=== PATIENT | male | born 1960 | race Caucasian/White ===

== ENCOUNTER 2023-09-12 13:27 | Inpatient (IN) ==
[2023-09-12 13:56] LABS: BILIRUBIN,URINE NEGATIVE (NEGATIVE); BLOOD/HEMOGLOBIN,URINE 4+ (NEGATIVE); GLUCOSE, URINE NEGATIVE (NEGATIVE); KETONES,URINE NEGATIVE (NEGATIVE); LEUKOCYTE ESTERASE ,URINE 1+ (NEGATIVE); NITRITES,URINE POSITIVE (NEGATIVE); PH,URINE 6.5 (5.0 - 8.0); PROTEIN,URINE 2+ (NEGATIVE); UROBILINOGEN,URINE 2+ (NORMAL)
[2023-09-12 13:57] LABS: APPEARANCE,URINE SLIGHTLY HAZY (CLEAR); COLOR,URINE YELLOW (YELLOW)
[2023-09-12 14:04] LABS: BACTERIA,URINE 4+ /HPF (NEGATIVE); SQUAMOUS EPITHELIAL CELL,UR RARE /HPF (NEGATIVE)
--- NOTE | 2023-09-12 15:23 | DR.EXTPAIN ---
HPI Time seen Time Seen by Provider: 09/12/23 14:23 PCP Primary Care Physician: Paige Complaint/Symptoms Chief Complaint Doctor Comments: Patient fell 2 days ago because he has an old injury( 08/11/23) to the Rt leg that affects his ability to walk. Patient states that he was also feeling lightheaded when he fell. Patient hit his right hand and c/o swelling and pain in his right hand. The old injury has led to mid-back pain that is radiating to his BLE. Patient denies:fever, n, v, chest pain, abdl pain,. Patient is a smoker;began at age 18 and was smoking 1ppd until the 08/11/23 incident and now he smokes 1/2PPD. Chief Complaint:: Patient fell 2 days ago secondary to back pain and feeling light headed. He complains of edema and pain right hand and wrist. He states he has had back pain since 08/10 and wwas evaluated. He complains of pain mid back radiating to bilateral legs. He states his pain stated prior to his fall 2 days ago. COVID-19 Coronavirus risk:travel/contact w/high risk person: No Has patient experienced Coronavirus symptoms: No Source History Provided: Patient and EMS Mode of arrival Mode of Arrival: EMS Timing Onset of Chief Complaint: 09/10/23 PMH PMH Past Medical History: No Past Surgical History: Yes Surgical History: Ortho Surgery and Other Family History History of Family Medical Conditions: Yes Family Medical History: MD, Coronary Artery Disease and Hypertension Social History Does patient currently use any type of tobacco product: Yes Have you used tobacco products in the last 12 months: Yes Type of Tobacco Use: None Does any household member use tobacco: Yes Alcohol Use: None Do you use any recreational Drugs:: No Lives With: Spouse Lives Where: Home Travel Risk Coronavirus risk:travel/contact w/high risk person: No Has patient experienced Coronavirus symptoms: No Infectious screening In the last 2 months have you had wt loss of >10#?: NO Have you had fever, night sweats or hemotysis?: No Have you traveled outside the country in the last 6 months?: No Isolation: Standard ROS Review of Systems Constitutional: No Symptoms Reported Eyes: No Symptoms Reported ENTM: No Symptoms Reported Respiratoy: No Symptoms Reported Cardiovascular: No Symptoms Reported Gastrointestinal/Abdominal: No Symptoms Reported Genitourinary: No Symptoms Reported Neurological: Other (lightheadedness) Musculoskeletal: No Symptoms Reported, Right, Hand (Swelling and pain) and Leg (RLE weakness) Integumentary: Change in Color (Rt hand) Hematologic/Lymphatic: No Symptoms Reported Endocrine: No Symptoms Reported Psychiatric: No Symptoms Reported All Other Systems: Reviewed and Negative PE Vital Signs Vitals: Vital Signs Temperature 99.7 F Temperature 98.6 F Pulse Rate 91 Pulse Rate 93 Pulse Rate 94 Pulse Rate 96 Pulse Rate 99 Pulse Rate 110 Respiratory Rate 20 Respiratory Rate 20 Respiratory Rate 24 Blood Pressure [Left Arm] 128/75 Blood Pressure 140/66 Blood Pressure 137/74 O2 Sat by Pulse Oximetry 96 O2 Sat by Pulse Oximetry 95 O2 Sat by Pulse Oximetry 95 O2 Sat by Pulse Oximetry 95 O2 Sat by Pulse Oximetry 95 O2 Sat by Pulse Oximetry 95 O2 Sat by Pulse Oximetry 94 General Limitations: No Limitations General Appearance: Alert and In No Apparent Distress Head Head Exam: Normal Inspection Eyes Eye exam: Normal Appearance ENT ENT Exam: Normal Exam Neck Neck Exam: Normal Inspection Chest Chest Inspection: Normal Inspection Respiratory Respiratory Exam: Normal Lung Sounds Bilat Respiratory Exam: Bilateral: Clear to Auscultation Cardiovascular Cardiovascular Exam: Regular Rate and Normal Rhythm Abdominal Exam Abdominal Exam: Normal Inspection, Normal Bowel Sounds and Soft Extremities Extremities Exam: Normal Inspection, Tenderness (Rt hand and Left shoulder joint) and Joint Swelling (Rt hand) Upper Extremities Shoulder Exam: Tenderness (left shoulder joint) and Swelling (Rt hand); negative Full ROM (decreased at left shoulder joint) Hand Exam: Tenderness (Dorsal surface Rt hand), Swelling (Rt hand (dorsal)), Erythema (Dorsal surface Rt hand) and Other (No flexor tendon sheath tenderness in fingers of Rt hand) Back Back Exam: Normal Inspection Neurological Neurological Exam: Alert, Oriented X3 and CN II-XII Intact Psychiatric Psychiatric Exam: Normal Affect and Normal Mood Skin Skin Exam: Warm, Dry, Intact and Normal Color MDM Differential Diagnosis Differential Diagnosis: Fracture (or dislocation) and Other (Cellulitis,electrolyte disorder,UTI,dehydration) COURSE Treatment Treatment: Patient was brought to an exam room. IV access was initiated and labs and tests were ordered. Patient 's Left shoulder xray did not reveal a fx or dislocation and the right hand xray did not reveal a fracture or dislocation. Patient's labs were reviewed: His wbc 19.2,Na 121,U/A nitrite and leukest pos,5- 10 wbcs and Rbcs ( urine cx pending). Patient was given cefepime 2g iv for the celluitis and the UTI. Discussed case with Dr Walls. Patient has been accepted to Dr Walls's Service for further inpatient evaluation. [facility]OR Labs Reviewed Laboratory Results Reviewed?: Yes 09/12/23 17:30 09/12/23 17:30 Laboratory: WBC 19.2 X10^3/uL (3.6-10.0) H 09/12/23 17:30 RBC 3.83 X10^6/uL (4.7-6.0) L 09/12/23 17:30 Hgb 11.7 g/dL (13.5-18.0) L 09/12/23 17:30 Hct 34.1 % (42.0-54.0) L 09/12/23 17:30 MCV 89.1 fL (80.0-100.0) 09/12/23 17:30 MCH 30.5 pg (27.0-34.0) 09/12/23 17:30 MCHC 34.2 g/dL (33.0-35.0) 09/12/23 17:30 RDW 14.3 % (11.6-16.5) 09/12/23 17:30 Plt Count 503 X10^3/uL (150.0-450.0) H 09/12/23 17:30 MPV 6.3 fL (7.4-11.0) L 09/12/23 17:30 Neut % (Auto) 89.8 % (42.0-75.0) H 09/12/23 17:30 Lymph % (Auto) 3.8 % (21.0-51.0) L 09/12/23 17:30 [place] % (Auto) 5.2 % (0.0-13.0) 09/12/23 17:30 Eos % (Auto) 0.1 % (0.9-2.9) L 09/12/23 17:30 Baso % (Auto) 1.1 % (0.2-1.0) H 09/12/23 17:30 Neut # (Auto) 17.2 x10^3/uL (2.2-4.8) H 09/12/23 17:30 Lymph # (Auto) 0.7 X10^3/uL (1.3-2.9) L 09/12/23 17:30 [place] # (Auto) 1.0 x10^3/uL (0.3-0.8) H 09/12/23 17:30 Eos # (Auto) 0.0 x10^3/uL (0.0-0.2) 09/12/23 17:30 Baso # (Auto) 0.2 X10^3/uL (0.0-0.1) H 09/12/23 17:30 Absolute Nucleated RBC 0.0 /100WBC 09/12/23 17:30 Sodium 121 mmol/L (136-145) L* 09/12/23 17:30 Corrected Sodium TNP 09/12/23 17:30 Potassium 4.7 mmol/L (3.5-5.1) 09/12/23 17:30 Chloride 89 mmol/L (98-107) L 09/12/23 17:30 Carbon Dioxide 28.0 mmol/L (21-32) 09/12/23 17:30 BUN 7 mg/dL (7-18) 09/12/23 17:30 Creatinine 0.78 mg/dL (0.70-1.30) 09/12/23 17:30 Est GFR (MDRD) Af Amer > 60 (>60) 09/12/23 17:30 Est GFR (MDRD) Non-Af > 60 (>60) 09/12/23 17:30 Glucose 108 mg/dL (65-99) H 09/12/23 17:30 Calcium 8.1 mg/dL (8.5-10.1) L 09/12/23 17:30 Corrected Calcium 10.1 mg/dL (8.5-10.1) 09/12/23 17:30 Total Bilirubin 0.70 mg/dL (0.2-1.0) 09/12/23 17:30 AST 26 Units/L (15-37) 09/12/23 17:30 ALT 18 Units/L (12-78) 09/12/23 17:30 Alkaline Phosphatase 271 Units/L (46-116) H 09/12/23 17:30 Total Protein 8.2 g/dL (6.4-8.2) 09/12/23 17:30 Albumin 1.5 g/dL (3.4-5.0) L 09/12/23 17:30 Globulin 6.7 g/dL (2.5-4.5) H 09/12/23 17:30 Albumin/Globulin Ratio 0.2 Ratio (1.1-2.1) L 09/12/23 17:30 Specimen Type Clean catch urine 09/12/23 13:46 Urine Color Yellow (YELLOW) 09/12/23 13:46 Urine Appearance Slightly hazy (CLEAR) 09/12/23 13:46 Urine pH 6.5 (5.0 - 8.0) 09/12/23 13:46 Ur Specific [place] 1.015 (1.000-1.030) 09/12/23 13:46 Urine Protein 2+ (NEGATIVE) 09/12/23 13:46 Urine Glucose (UA) Negative (NEGATIVE) 09/12/23 13:46 Urine Ketones Negative (NEGATIVE) 09/12/23 13:46 Urine Blood 4+ (NEGATIVE) 09/12/23 13:46 Urine Nitrite Positive (NEGATIVE) 09/12/23 13:46 Urine Bilirubin Negative (NEGATIVE) 09/12/23 13:46 Urine Urobilinogen 2+ (NORMAL) 09/12/23 13:46 Ur Leukocyte Esterase 1+ (NEGATIVE) 09/12/23 13:46 Urine RBC 5-10 /HPF (0-3) A 09/12/23 13:46 Urine WBC 5-10 /HPF (0-5) A 09/12/23 13:46 Ur Squamous Epith Cells Rare /HPF (NEGATIVE) 09/12/23 13:46 Amorphous Sediment 1+ /HPF (NEGATIVE) 09/12/23 13:46 Urine Bacteria 4+ /HPF (NEGATIVE) 09/12/23 13:46 Ur Culture Indicated? Yes/culture set up 09/12/23 13:46 Opioid Opioid Risk Tool Age (Paulo box if 16-45): No History of Preadolescent Sexual Abuse: No Total: 0 Total Score Risk Category: Low Risk Copyright: Tom LU predicting aberrant behaviors Discharge Plan Diagnosis Discharge Problem: Cellulitis and abscess of hand, Urinary tract infection, Acute hyponatremia Discharge Plan Patient Disposition: 09 ADMITTED INPATIENT Condition: Stable Orders to Discharge Patient Discharge Orders: Transfer (Routine); Ordered 05/19/24 Ordered By: Larisa Burciaga
--- NOTE | 2023-09-12 16:59 | RAD ---
EXAM:SHOULDER, LEFT two-viewHISTORY:FALL YESTERDAY LOOKING FOR FX OR DISLOCATION ;COMPARISON:07/13/2022FINDINGS:The glenohumeral joint appears intact. No acute fracture or dislocation. The visualized portions of the scapula appear intact.The visualized portions of the chest demonstrate no acute process.IMPRESSION:No acute fracture or dislocation.THIS IS AN ELECTRONICALLY VERIFIED FINAL REPORT09/12/2023 4:56 PM - Electronically signed by Seamus Iqbal MD
--- NOTE | 2023-09-12 17:00 | RAD ---
EXAM:HAND, RIGHT three-viewHISTORY:FALL YESTERDAY, DR LOOKING FOR FX. RT HAND SWOLLEN AND HOT TO THE TOUCH ;COMPARISON:NoneFINDINGS:No acute fracture or dislocation. Moderate 1st carpometacarpal joint arthrosis. The carpal bones appear well aligned. No acute soft tissue abnormality.IMPRESSION:No acute fracture or dislocation.THIS IS AN ELECTRONICALLY VERIFIED FINAL REPORT09/12/2023 4:57 PM - Electronically signed by Seamus Iqbal MD
[2023-09-12] MEDS ORDERED: NS 100 ML IV 100 ML ONE (17:15)
[2023-09-12] MEDS ORDERED: TORADOL 30 MG VIAL ONE (17:20)
[2023-09-12] MEDS: MAXIPIME VIAL 2 GRAMS 2 G in NS 100 ML IV 100 ML IV ONE (17:32)
[2023-09-12] MEDS: TORADOL 30 MG VIAL IVP ONE (17:33)
[2023-09-12 17:58] LABS: BASOPHILS # (AUTO) 0.2 X10^3/uL (0.0-0.1); BASOPHILS % (AUTO) 1.1 % (0.2-1.0); EOSINOPHILS % (AUTO) 0.1 % (0.9-2.9); HEMATOCRIT 34.1 % (42.0-54.0); HEMOGLOBIN 11.7 g/dL (13.5-18.0); LYMPHOCYTES # (AUTO) 0.7 X10^3/uL (1.3-2.9); LYMPHOCYTES % (AUTO) 3.8 % (21.0-51.0); MEAN CORPUSCULAR HEMOGLOBIN 30.5 pg (27.0-34.0); MEAN CORPUSCULAR HGB CONC 34.2 g/dL (33.0-35.0); MEAN CORPUSCULAR VOLUME 89.1 fL (80.0-100.0); MEAN PLATELET VOLUME 6.3 fL (7.4-11.0); MONOCYTES % (AUTO) 5.2 % (0.0-13.0); NEUTROPHILS # (AUTO) 17.2 x10^3/uL (2.2-4.8); NEUTROPHILS % (AUTO) 89.8 % (42.0-75.0); PLATELET COUNT 503 X10^3/uL (150.0-450.0); RED BLOOD COUNT 3.83 X10^6/uL (4.7-6.0); RED CELL DISTRIBUTION WIDTH 14.3 % (11.6-16.5); WHITE BLOOD COUNT 19.2 X10^3/uL (3.6-10.0)
[2023-09-12 18:26] LABS: ALANINE AMINOTRANSFERASE 18 Units/L (12-78); ALBUMIN 1.5 g/dL (3.4-5.0); ALKALINE PHOSPHATASE 271 Units/L (46-116); ASPARTATE AMINO TRANSFERASE 26 Units/L (15-37); BLOOD UREA NITROGEN 7 mg/dL (7-18); CALCIUM 8.1 mg/dL (8.5-10.1); CHLORIDE 89 mmol/L (98-107); COR CA(FOR HYPOALB) 10.1 mg/dL (8.5-10.1); CREATININE 0.78 mg/dL (0.70-1.30); GLUCOSE 108 mg/dL (65-99); POTASSIUM 4.7 mmol/L (3.5-5.1); TOTAL PROTEIN 8.2 g/dL (6.4-8.2); eGFR NON BLACK RACES > 60 (>60)
[2023-09-12 18:28] LABS: SODIUM 121 mmol/L (136-145)
[2023-09-12] MEDS: NS 1,000 ML IV 1,000 ML IV SCH (18:54)
[2023-09-12 21:02] VITALS: BMI 22.6
[2023-09-12] MEDS: COLACE CAP 100 MG PO SCH (21:45)
[2023-09-12] MEDS: MAXIPIME VIAL 2 GRAMS 2 G in NS 100 ML IV 100 ML IV SCH (21:47)
[2023-09-13] MEDS: NORCO 10/325 TAB PO PRN (00:11)
[2023-09-13] MEDS: MORPHINE SULFATE INJ 2 MG INJ IVP PRN (02:11)
[2023-09-13] MEDS: TYLENOL 325 MG TAB PO PRN (04:43)
[2023-09-13 05:12] LABS: BASOPHILS # (AUTO) 0.1 X10^3/uL (0.0-0.1); BASOPHILS % (AUTO) 0.4 % (0.2-1.0); EOSINOPHILS % (AUTO) 0.1 % (0.9-2.9); HEMATOCRIT 32.8 % (42.0-54.0); HEMOGLOBIN 11.3 g/dL (13.5-18.0); LYMPHOCYTES # (AUTO) 1.2 X10^3/uL (1.3-2.9); LYMPHOCYTES % (AUTO) 7.1 % (21.0-51.0); MEAN CORPUSCULAR HEMOGLOBIN 30.8 pg (27.0-34.0); MEAN CORPUSCULAR HGB CONC 34.4 g/dL (33.0-35.0); MEAN CORPUSCULAR VOLUME 89.4 fL (80.0-100.0); MEAN PLATELET VOLUME 6.3 fL (7.4-11.0); MONOCYTES # (AUTO) 0.9 x10^3/uL (0.3-0.8); MONOCYTES % (AUTO) 5.3 % (0.0-13.0); NEUTROPHILS # (AUTO) 14.7 x10^3/uL (2.2-4.8); NEUTROPHILS % (AUTO) 87.1 % (42.0-75.0); PLATELET COUNT 440 X10^3/uL (150.0-450.0); RED BLOOD COUNT 3.67 X10^6/uL (4.7-6.0); RED CELL DISTRIBUTION WIDTH 14.6 % (11.6-16.5); WHITE BLOOD COUNT 16.8 X10^3/uL (3.6-10.0)
[2023-09-13 05:24] LABS: ALANINE AMINOTRANSFERASE 25 Units/L (12-78); ALBUMIN 1.3 g/dL (3.4-5.0); ALKALINE PHOSPHATASE 241 Units/L (46-116); ASPARTATE AMINO TRANSFERASE 35 Units/L (15-37); BLOOD UREA NITROGEN 11 mg/dL (7-18); CARBON DIOXIDE 28.5 mmol/L (21-32); CHLORIDE 89 mmol/L (98-107); COR CA(FOR HYPOALB) 10.2 mg/dL (8.5-10.1); COR NA(FOR HYPERGLY) 123 mmol/L (136-145); CREATININE 0.81 mg/dL (0.70-1.30); GLUCOSE 138 mg/dL (65-99); POTASSIUM 4.9 mmol/L (3.5-5.1); TOTAL PROTEIN 7.9 g/dL (6.4-8.2); eGFR NON BLACK RACES > 60 (>60)
[2023-09-13 05:36] LABS: SODIUM 122 mmol/L (136-145)
[2023-09-13] MEDS: NS 1,000 ML IV 1,000 ML ONE (07:24)
[2023-09-13] MEDS: MAXIPIME VIAL 1 GRAM ONE (07:24)
[2023-09-13] MEDS: MILK OF MAGNESIA PO SCH (08:25)
[2023-09-13] MEDS: VANCOMYCIN IV *PREMIX 1 G/200 ML BAG 1 G/200 ML PIGGYBACK IV SCH (09:51)
[2023-09-13] MEDS ORDERED: PHARMACY CONSULT - VANCOMYCIN XX SCH (10:00)
[2023-09-14 05:43] LABS: BASOPHILS % (AUTO) 0.2 % (0.2-1.0); EOSINOPHILS % (AUTO) 0.1 % (0.9-2.9); HEMATOCRIT 30.7 % (42.0-54.0); HEMOGLOBIN 10.3 g/dL (13.5-18.0); LYMPHOCYTES # (AUTO) 0.9 X10^3/uL (1.3-2.9); LYMPHOCYTES % (AUTO) 5.6 % (21.0-51.0); MEAN CORPUSCULAR HEMOGLOBIN 29.8 pg (27.0-34.0); MEAN CORPUSCULAR HGB CONC 33.6 g/dL (33.0-35.0); MEAN CORPUSCULAR VOLUME 88.7 fL (80.0-100.0); MONOCYTES # (AUTO) 0.8 x10^3/uL (0.3-0.8); MONOCYTES % (AUTO) 5.4 % (0.0-13.0); NEUTROPHILS # (AUTO) 13.7 x10^3/uL (2.2-4.8); NEUTROPHILS % (AUTO) 88.7 % (42.0-75.0); PLATELET COUNT 509 X10^3/uL (150.0-450.0); RED BLOOD COUNT 3.46 X10^6/uL (4.7-6.0); RED CELL DISTRIBUTION WIDTH 14.6 % (11.6-16.5); WHITE BLOOD COUNT 15.5 X10^3/uL (3.6-10.0)
[2023-09-14 05:55] LABS: ALANINE AMINOTRANSFERASE 50 Units/L (12-78); ALBUMIN 1.2 g/dL (3.4-5.0); ALKALINE PHOSPHATASE 189 Units/L (46-116); ASPARTATE AMINO TRANSFERASE 76 Units/L (15-37); BLOOD UREA NITROGEN 9 mg/dL (7-18); CALCIUM 7.8 mg/dL (8.5-10.1); CARBON DIOXIDE 24.5 mmol/L (21-32); CHLORIDE 94 mmol/L (98-107); COR NA(FOR HYPERGLY) 126 mmol/L (136-145); CREATININE 0.78 mg/dL (0.70-1.30); GLUCOSE 165 mg/dL (65-99); POTASSIUM 4.1 mmol/L (3.5-5.1); TOTAL PROTEIN 7.4 g/dL (6.4-8.2); eGFR NON BLACK RACES > 60 (>60)
[2023-09-14 06:07] LABS: SODIUM 124 mmol/L (136-145)
[2023-09-14] MEDS: MOBIC TAB 15 MG PO SCH (11:07)
[2023-09-14] MEDS: PHARMACY COMMENT IV NR (20:03)
[2023-09-14] MEDS ORDERED: VANCOMYCIN IV *PREMIX 1 G/200 ML BAG 1 G/200 ML PIGGYBACK IV SCH (21:00)
[2023-09-14] MEDS: VANCOMYCIN IV *PREMIX 1 G/200 ML BAG 1 G/200 ML PIGGYBACK IV SCH (21:49)
[2023-09-15 07:07] LABS: BASOPHILS # (AUTO) 0.1 X10^3/uL (0.0-0.1); BASOPHILS % (AUTO) 0.5 % (0.2-1.0); EOSINOPHILS % (AUTO) 0.3 % (0.9-2.9); HEMATOCRIT 30.3 % (42.0-54.0); HEMOGLOBIN 10.3 g/dL (13.5-18.0); LYMPHOCYTES # (AUTO) 0.9 X10^3/uL (1.3-2.9); LYMPHOCYTES % (AUTO) 6.8 % (21.0-51.0); MEAN CORPUSCULAR HEMOGLOBIN 29.9 pg (27.0-34.0); MEAN CORPUSCULAR HGB CONC 33.9 g/dL (33.0-35.0); MEAN CORPUSCULAR VOLUME 88.3 fL (80.0-100.0); MEAN PLATELET VOLUME 6.1 fL (7.4-11.0); MONOCYTES # (AUTO) 0.7 x10^3/uL (0.3-0.8); MONOCYTES % (AUTO) 5.3 % (0.0-13.0); NEUTROPHILS % (AUTO) 87.1 % (42.0-75.0); PLATELET COUNT 496 X10^3/uL (150.0-450.0); RED BLOOD COUNT 3.44 X10^6/uL (4.7-6.0); RED CELL DISTRIBUTION WIDTH 13.9 % (11.6-16.5); WHITE BLOOD COUNT 13.7 X10^3/uL (3.6-10.0)
[2023-09-15 07:23] LABS: ALANINE AMINOTRANSFERASE 159 Units/L (12-78); ALBUMIN 1.2 g/dL (3.4-5.0); ALKALINE PHOSPHATASE 204 Units/L (46-116); ASPARTATE AMINO TRANSFERASE 171 Units/L (15-37); BLOOD UREA NITROGEN 11 mg/dL (7-18); CALCIUM 7.6 mg/dL (8.5-10.1); CARBON DIOXIDE 24.6 mmol/L (21-32); CHLORIDE 90 mmol/L (98-107); COR CA(FOR HYPOALB) 9.8 mg/dL (8.5-10.1); COR NA(FOR HYPERGLY) 120 mmol/L (136-145); GLUCOSE 118 mg/dL (65-99); POTASSIUM 4.2 mmol/L (3.5-5.1); TOTAL PROTEIN 7.3 g/dL (6.4-8.2); eGFR NON BLACK RACES > 60 (>60)
[2023-09-15 07:25] LABS: SODIUM 120 mmol/L (136-145)
[2023-09-15] MEDS: PHARMACY COMMENT IV NR (22:00)
[2023-09-15 22:01] LABS: CREATININE 0.73 mg/dL (0.70-1.30); VANCOMYCIN,TROUGH 12.4 ug/mL (15-20)
[2023-09-16 06:31] LABS: BASOPHILS # (AUTO) 0.1 X10^3/uL (0.0-0.1); BASOPHILS % (AUTO) 0.6 % (0.2-1.0); EOSINOPHILS # (AUTO) 0.1 x10^3/uL (0.0-0.2); EOSINOPHILS % (AUTO) 0.5 % (0.9-2.9); HEMATOCRIT 30.1 % (42.0-54.0); HEMOGLOBIN 10.4 g/dL (13.5-18.0); LYMPHOCYTES % (AUTO) 7.3 % (21.0-51.0); MEAN CORPUSCULAR HEMOGLOBIN 30.2 pg (27.0-34.0); MEAN CORPUSCULAR HGB CONC 34.6 g/dL (33.0-35.0); MEAN CORPUSCULAR VOLUME 87.1 fL (80.0-100.0); MONOCYTES # (AUTO) 0.9 x10^3/uL (0.3-0.8); NEUTROPHILS # (AUTO) 12.2 x10^3/uL (2.2-4.8); NEUTROPHILS % (AUTO) 85.6 % (42.0-75.0); PLATELET COUNT 527 X10^3/uL (150.0-450.0); RED BLOOD COUNT 3.46 X10^6/uL (4.7-6.0); RED CELL DISTRIBUTION WIDTH 14.5 % (11.6-16.5); WHITE BLOOD COUNT 14.2 X10^3/uL (3.6-10.0)
[2023-09-16 06:51] LABS: ALANINE AMINOTRANSFERASE 175 Units/L (12-78); ALBUMIN 1.2 g/dL (3.4-5.0); ALKALINE PHOSPHATASE 226 Units/L (46-116); ASPARTATE AMINO TRANSFERASE 123 Units/L (15-37); BLOOD UREA NITROGEN 9 mg/dL (7-18); CALCIUM 7.8 mg/dL (8.5-10.1); CARBON DIOXIDE 24.8 mmol/L (21-32); CHLORIDE 91 mmol/L (98-107); CREATININE 0.67 mg/dL (0.70-1.30); GLUCOSE 95 mg/dL (65-99); POTASSIUM 4.3 mmol/L (3.5-5.1); TOTAL PROTEIN 7.3 g/dL (6.4-8.2); eGFR NON BLACK RACES > 60 (>60)
[2023-09-16 06:53] LABS: SODIUM 121 mmol/L (136-145)
[2023-09-16] MEDS: FLORINEF PO SCH (13:17)
[2023-09-16] MEDS: VANCOMYCIN IV *PREMIX 1.25 G/250 ML BAG 1.25 G/250 ML PIGGYBACK IV SCH (13:36)
[2023-09-16 14:09] LABS: ALANINE AMINOTRANSFERASE 167 Units/L (12-78); ALBUMIN 1.3 g/dL (3.4-5.0); ALKALINE PHOSPHATASE 228 Units/L (46-116); ASPARTATE AMINO TRANSFERASE 108 Units/L (15-37); BLOOD UREA NITROGEN 13 mg/dL (7-18); CALCIUM 7.9 mg/dL (8.5-10.1); CARBON DIOXIDE 26.4 mmol/L (21-32); CHLORIDE 91 mmol/L (98-107); COR CA(FOR HYPOALB) 10.1 mg/dL (8.5-10.1); COR NA(FOR HYPERGLY) 122 mmol/L (136-145); CREATININE 0.75 mg/dL (0.70-1.30); GLUCOSE 139 mg/dL (65-99); POTASSIUM 4.2 mmol/L (3.5-5.1); TOTAL PROTEIN 7.6 g/dL (6.4-8.2); eGFR NON BLACK RACES > 60 (>60)
[2023-09-16 14:12] LABS: SODIUM 121 mmol/L (136-145)
--- NOTE | 2023-09-16 14:45 | US ---
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 [place] scale and color-flow images of the right upper quadrant were obtained.FINDINGS:The liver has normal echogenicity and size. No mass or intrahepatic biliary duct dilatation is present. The intrahepatic inferior vena cava was imaged. The portal vein is patent with blood flow toward the liver. The hepatic artery was patent. The visualized hepatic veins are patent with blood flow toward the right atrium.Limited visualization of the pancreas shows no significant abnormality.The gallbladder is contracted. As a result, there is wall thickening measuring between 4 and 5 mm. I see no evidence for stone or pericholecystic fluid. No extrahepatic biliary duct dilatation; common duct is normal.The right kidney is normal in size and echogenicity. No hydronephrosis.IMPRESSION:1. Contracted gallbladder2. No biliary dilatationTHIS IS AN ELECTRONICALLY VERIFIED FINAL REPORT09/16/2023 2:42 PM - Electronically signed by John Jean MD
--- NOTE | 2023-09-16 16:48 | MRI ---
EXAM:MRI left shoulder without IV contrastHISTORY:left shoulder pain status post fall-COMPARISON:X-ray 09/12/2023TECHNIQUE:MRI of the left shoulder without IV contrast is performed using standard sequences in multiple planes.FINDINGS:Prominent hypertrophic arthritic changes are seen in the AC joint. There is no widening of the AC joint. Moderate osteoarthritic changes are seen in the glenohumeral joint. There is mild joint effusion with distention of the axillary recess. There is concern for tear of the anterior glenoid labrum.Arm is in internal rotation. Biceps tendon is normally positioned in the bicipital groove. There is increased fluid in the subacromial-subdeltoid joint. Superior and posterior to the supraspinatus muscle, there is a lobulated fluid collection measuring approximately 4.0 x 1.6 cm. This could be a synovial cyst or ganglion cyst.There appears to be full-thickness tear of the distal supraspinatus tendon anteriorly. Evaluation is limited due to the arm positioning. Infraspinatus tendon appears normal. No coracohumeral impingement is seen. Subscapularis tendon is probably intact. There is distention of the subcoracoid and subscapular bursa.There is possible bone contusion of the distal clavicular head and acromion. No fracture or dislocation is seen. There is edema within the deltoid muscle.IMPRESSION:No fracture is seen. There may be bone contusion in the distal clavicular head and acromion.Full-thickness supraspinatus tendon tear suspected but evaluation is limited due to difficulty positioning patient.There may be tear of the anterior glenoid labrum.THIS IS AN ELECTRONICALLY VERIFIED FINAL REPORT09/16/2023 4:45 PM - Electronically signed by Gordo Simons MD
[2023-09-17 06:12] LABS: HEMOGLOBIN 10.4 g/dL (13.5-18.0); WHITE BLOOD COUNT 11.5 X10^3/uL (3.6-10.0)
[2023-09-17 06:17] LABS: BASOPHILS # (AUTO) 0.1 X10^3/uL (0.0-0.1); BASOPHILS % (AUTO) 0.8 % (0.2-1.0); EOSINOPHILS # (AUTO) 0.1 x10^3/uL (0.0-0.2); LYMPHOCYTES % (AUTO) 8.5 % (21.0-51.0); MEAN CORPUSCULAR HEMOGLOBIN 30.5 pg (27.0-34.0); MEAN CORPUSCULAR HGB CONC 34.8 g/dL (33.0-35.0); MEAN CORPUSCULAR VOLUME 87.7 fL (80.0-100.0); MONOCYTES # (AUTO) 0.6 x10^3/uL (0.3-0.8); MONOCYTES % (AUTO) 5.4 % (0.0-13.0); NEUTROPHILS # (AUTO) 9.7 x10^3/uL (2.2-4.8); NEUTROPHILS % (AUTO) 84.3 % (42.0-75.0); PLATELET COUNT 461 X10^3/uL (150.0-450.0); RED BLOOD COUNT 3.43 X10^6/uL (4.7-6.0); RED CELL DISTRIBUTION WIDTH 14.2 % (11.6-16.5)
[2023-09-17 06:22] LABS: ALANINE AMINOTRANSFERASE 137 Units/L (12-78); ALBUMIN 1.2 g/dL (3.4-5.0); ALKALINE PHOSPHATASE 198 Units/L (46-116); ASPARTATE AMINO TRANSFERASE 77 Units/L (15-37); BLOOD UREA NITROGEN 9 mg/dL (7-18); CALCIUM 7.4 mg/dL (8.5-10.1); CARBON DIOXIDE 25.9 mmol/L (21-32); CHLORIDE 91 mmol/L (98-107); COR CA(FOR HYPOALB) 9.6 mg/dL (8.5-10.1); CREATININE 0.66 mg/dL (0.70-1.30); GLUCOSE 107 mg/dL (65-99); POTASSIUM 4.1 mmol/L (3.5-5.1); TOTAL PROTEIN 7.1 g/dL (6.4-8.2); eGFR NON BLACK RACES > 60 (>60)
[2023-09-17 06:23] LABS: SODIUM 120 mmol/L (136-145)
[2023-09-17 06:33] LABS: VANCOMYCIN,TROUGH 40.3 ug/mL (15-20)
[2023-09-17] MEDS: MOBIC TAB 15 MG PO SCH (08:43)
[2023-09-17] MEDS ORDERED: CORTEF ONE (09:25)
[2023-09-17] MEDS: CORTEF PO SCH (09:31)
[2023-09-17] MEDS ORDERED: MORPHINE SULFATE INJ 2 MG INJ ONE (09:35)
[2023-09-17] MEDS: MORPHINE SULFATE INJ 2 MG INJ IVP ONE (09:39)
[2023-09-17] MEDS: PHARMACY COMMENT IV NR (13:30)
[2023-09-17 14:23] LABS: CREATININE 0.7 mg/dL (0.70-1.30); VANCOMYCIN,TROUGH 12.8 ug/mL (15-20)
[2023-09-17] MEDS: VANCOMYCIN IV *PREMIX 1.5 G/300 ML BAG 1.5 G/300 ML PIGGYBACK IV SCH (14:48)
[2023-09-17] MEDS: MORPHINE SULFATE INJ 4 MG IVP PRN (19:29)
[2023-09-18 06:23] LABS: BASOPHILS # (AUTO) 0.1 X10^3/uL (0.0-0.1); BASOPHILS % (AUTO) 0.5 % (0.2-1.0); EOSINOPHILS # (AUTO) 0.2 x10^3/uL (0.0-0.2); EOSINOPHILS % (AUTO) 1.8 % (0.9-2.9); HEMOGLOBIN 10.8 g/dL (13.5-18.0); LYMPHOCYTES # (AUTO) 0.9 X10^3/uL (1.3-2.9); LYMPHOCYTES % (AUTO) 9.9 % (21.0-51.0); MEAN CORPUSCULAR HEMOGLOBIN 30.5 pg (27.0-34.0); MEAN CORPUSCULAR HGB CONC 34.7 g/dL (33.0-35.0); MEAN CORPUSCULAR VOLUME 87.9 fL (80.0-100.0); MEAN PLATELET VOLUME 6.2 fL (7.4-11.0); MONOCYTES # (AUTO) 0.7 x10^3/uL (0.3-0.8); MONOCYTES % (AUTO) 7.4 % (0.0-13.0); NEUTROPHILS # (AUTO) 7.7 x10^3/uL (2.2-4.8); NEUTROPHILS % (AUTO) 80.4 % (42.0-75.0); PLATELET COUNT 496 X10^3/uL (150.0-450.0); RED BLOOD COUNT 3.53 X10^6/uL (4.7-6.0); RED CELL DISTRIBUTION WIDTH 14.3 % (11.6-16.5); WHITE BLOOD COUNT 9.5 X10^3/uL (3.6-10.0)
[2023-09-18 06:31] LABS: ALANINE AMINOTRANSFERASE 137 Units/L (12-78); ALBUMIN 1.4 g/dL (3.4-5.0); ALKALINE PHOSPHATASE 184 Units/L (46-116); ASPARTATE AMINO TRANSFERASE 74 Units/L (15-37); BLOOD UREA NITROGEN 9 mg/dL (7-18); CALCIUM 8.2 mg/dL (8.5-10.1); CARBON DIOXIDE 26.4 mmol/L (21-32); CHLORIDE 94 mmol/L (98-107); COR CA(FOR HYPOALB) 10.3 mg/dL (8.5-10.1); CREATININE 0.67 mg/dL (0.70-1.30); GLUCOSE 106 mg/dL (65-99); POTASSIUM 3.9 mmol/L (3.5-5.1); TOTAL PROTEIN 7.5 g/dL (6.4-8.2); eGFR NON BLACK RACES > 60 (>60)
[2023-09-18 06:34] LABS: SODIUM 125 mmol/L (136-145)
[2023-09-18] MEDS ORDERED: CORTEF ONE (08:33)
[2023-09-18] MEDS: ALBUMIN HUMAN 25%- 100 ML 100 ML IV SCH (12:04)
[2023-09-18 14:06] LABS: CREATININE 0.68 mg/dL (0.70-1.30); VANCOMYCIN,TROUGH 17.9 ug/mL (15-20)
[2023-09-18] MEDS: PHARMACY COMMENT IV NR (14:34)
--- NOTE | 2023-09-18 19:11 | PCM.PROG ---
Progress Note Progress Note for Day of Date of Exam: 09/18/23 Subjective Subjective: The patient reports he is feeling fine this morning. His sodium is still low at 125. Creatinine is stable at 0.67. His AST and ALT are both slightly elevated. This is likely secondary to hepatic congestion. The patient is receiving IV vancomycin for sepsis. The patient's area of cellulitis is improving, and I will add oral Bactrim DS and ciprofloxacin today to see if this hastens his recovery from his cellulitis. Since his albumin is also low, I will give him 25% albumin 100 cc IV x 1 today. I will also check an ESR and CRP today and order him for tomorrow. Past Medical Family Social History Allergies: Allergies No Known Allergies Allergy (Verified 08/31/23 13:05) Review of Systems ROS: No change since H&P Vital Signs and I&O's Vital Signs: Vital Signs Temperature 97.6 F Temperature 97.5 F Pulse Rate [Brachial] 76 Pulse Rate [Brachial] 76 Respiratory Rate 18 Respiratory Rate 20 Respiratory Rate 20 Respiratory Rate 18 Blood Pressure [Left Arm] 140/83 Blood Pressure [Left Arm] 129/77 O2 Sat by Pulse Oximetry 95 O2 Sat by Pulse Oximetry 96 Intake and Output: Intake & Output 09/16/23 09/17/23 09/18/23 09/19/23 11:59 11:59 11:59 11:59 Intake Total 4722 / 4722 3838 / 3838 3645 / 3645 1460 / 1460 Output Total 2840 / 2840 3610 / 3610 6000 / 6000 3300 / 3300 Balance 1882 / 1882 228 / 228 -2355 / -2355 -1840 / -1840 Physical Exam Oriented: Normal and Place Respiratory: Normal Cardiovascular: Normal Skin: Red (Decreasing area of erythema since admission.) and Tender Psychiatric: Normal Mood Description: Calm Affect: Normal Speech Pattern: Clear and Appropriate Laboratory and Diagnostics 09/18/23 05:10 09/18/23 13:37 Labs: 09/16/23 16:40 Aspirate Wound Gram Stain - Final 09/16/23 16:40 Aspirate Wound Culture - Preliminary Staphylococcus Aureus 09/13/23 23:40 Blood Blood Culture Gram Stain - Final 09/13/23 23:40 Blood Blood Culture - Final Staphylococcus Aureus 09/13/23 23:35 Blood Blood Culture Gram Stain - Final 09/13/23 23:35 Blood Blood Culture - Final Staphylococcus Aureus 09/12/23 17:30 Blood Blood Culture Gram Stain - Final 09/12/23 17:30 Blood Blood Culture - Final Staphylococcus Aureus 09/12/23 17:25 Blood Blood Culture Gram Stain - Final 09/12/23 17:25 Blood Blood Culture - Final Staphylococcus Aureus 09/12/23 13:46 Urine,Clean Catch Urine Culture - Final Staphylococcus Aureus Laboratory WBC 9.5 X10^3/uL (3.6-10.0) 09/18/23 05:10 RBC 3.53 X10^6/uL (4.7-6.0) L 09/18/23 05:10 Hgb 10.8 g/dL (13.5-18.0) L 09/18/23 05:10 Hct 31.0 % (42.0-54.0) L 09/18/23 05:10 MCV 87.9 fL (80.0-100.0) 09/18/23 05:10 MCH 30.5 pg (27.0-34.0) 09/18/23 05:10 MCHC 34.7 g/dL (33.0-35.0) 09/18/23 05:10 RDW 14.3 % (11.6-16.5) 09/18/23 05:10 Plt Count 496 X10^3/uL (150.0-450.0) H 09/18/23 05:10 MPV 6.2 fL (7.4-11.0) L 09/18/23 05:10 Neut % (Auto) 80.4 % (42.0-75.0) H 09/18/23 05:10 Lymph % (Auto) 9.9 % (21.0-51.0) L 09/18/23 05:10 [place] % (Auto) 7.4 % (0.0-13.0) 09/18/23 05:10 Eos % (Auto) 1.8 % (0.9-2.9) 09/18/23 05:10 Baso % (Auto) 0.5 % (0.2-1.0) 09/18/23 05:10 Neut # (Auto) 7.7 x10^3/uL (2.2-4.8) H 09/18/23 05:10 Lymph # (Auto) 0.9 X10^3/uL (1.3-2.9) L 09/18/23 05:10 [place] # (Auto) 0.7 x10^3/uL (0.3-0.8) 09/18/23 05:10 Eos # (Auto) 0.2 x10^3/uL (0.0-0.2) 09/18/23 05:10 Baso # (Auto) 0.1 X10^3/uL (0.0-0.1) 09/18/23 05:10 Absolute Nucleated RBC 0.0 /100WBC 09/18/23 05:10 ESR 91 MM/HOUR (0-15) H 09/18/23 11:23 Sodium 125 mmol/L (136-145) L* 09/18/23 05:10 Corrected Sodium TNP 09/18/23 05:10 Potassium 3.9 mmol/L (3.5-5.1) 09/18/23 05:10 Chloride 94 mmol/L (98-107) L 09/18/23 05:10 Carbon Dioxide 26.4 mmol/L (21-32) 09/18/23 05:10 BUN 9 mg/dL (7-18) 09/18/23 05:10 Creatinine 0.68 mg/dL (0.70-1.30) L 09/18/23 13:37 Est GFR (MDRD) Af Amer > 60 (>60) 09/18/23 05:10 Est GFR (MDRD) Non-Af > 60 (>60) 09/18/23 05:10 Glucose 106 mg/dL (65-99) H 09/18/23 05:10 Lactic Acid 1.5 mmol/L (0.4-2.0) 09/12/23 17:25 Calcium 8.2 mg/dL (8.5-10.1) L 09/18/23 05:10 Corrected Calcium 10.3 mg/dL (8.5-10.1) H 09/18/23 05:10 Total Bilirubin 0.40 mg/dL (0.2-1.0) 09/18/23 05:10 AST 74 Units/L (15-37) H 09/18/23 05:10 ALT 137 Units/L (12-78) H 09/18/23 05:10 Alkaline Phosphatase 184 Units/L (46-116) H 09/18/23 05:10 C-Reactive Protein 49.50 mg/L (0-3.0) H 09/18/23 11:23 Total Protein 7.5 g/dL (6.4-8.2) 09/18/23 05:10 Albumin 1.4 g/dL (3.4-5.0) L 09/18/23 05:10 Globulin 6.1 g/dL (2.5-4.5) H 09/18/23 05:10 Albumin/Globulin Ratio 0.2 Ratio (1.1-2.1) L 09/18/23 05:10 Specimen Type Clean catch urine 09/12/23 13:46 Urine Color Yellow (YELLOW) 09/12/23 13:46 Urine Appearance Slightly hazy (CLEAR) 09/12/23 13:46 Urine pH 6.5 (5.0 - 8.0) 09/12/23 13:46 Ur Specific [place] 1.015 (1.000-1.030) 09/12/23 13:46 Urine Protein 2+ (NEGATIVE) 09/12/23 13:46 Urine Glucose (UA) Negative (NEGATIVE) 09/12/23 13:46 Urine Ketones Negative (NEGATIVE) 09/12/23 13:46 Urine Blood 4+ (NEGATIVE) 09/12/23 13:46 Urine Nitrite Positive (NEGATIVE) 09/12/23 13:46 Urine Bilirubin Negative (NEGATIVE) 09/12/23 13:46 Urine Urobilinogen 2+ (NORMAL) 09/12/23 13:46 Ur Leukocyte Esterase 1+ (NEGATIVE) 09/12/23 13:46 Urine RBC 5-10 /HPF (0-3) A 09/12/23 13:46 Urine WBC 5-10 /HPF (0-5) A 09/12/23 13:46 Ur Squamous Epith Cells Rare /HPF (NEGATIVE) 09/12/23 13:46 Amorphous Sediment 1+ /HPF (NEGATIVE) 09/12/23 13:46 Urine Bacteria 4+ /HPF (NEGATIVE) 09/12/23 13:46 Ur Culture Indicated? Yes/culture set up 09/12/23 13:46 Vancomycin Trough 17.9 ug/mL (15-20) 09/18/23 13:37 Random Vancomycin 6.1 ug/mL 09/14/23 20:10 Radiology Reviewed: Yes Plan (1) Cellulitis and abscess of hand: Status: Acute Narrative Support Text: Improving. Blood cultures were positive for MRSA. Plan: Continue IV vancomycin, I will add oral Bactrim DS and ciprofloxacin. (2) Urinary tract infection: Status: Acute Plan: MRSA UTI, continue vancomycin. (3) Acute hyponatremia: Status: Acute Plan: Continue hydration with normal saline for correction of his hypokalemia. (4) Hypoalbuminemia: Status: Acute Plan: 25% albumin 100 mL IV x 1 today. I am hoping this will pull some fluid back into his circulation and decrease his edema
[2023-09-18] MEDS: TYLENOL 325 MG TAB PO PRN (21:20)
[2023-09-19 06:48] LABS: BASOPHILS % (AUTO) 0.6 % (0.2-1.0); EOSINOPHILS # (AUTO) 0.1 x10^3/uL (0.0-0.2); EOSINOPHILS % (AUTO) 1.9 % (0.9-2.9); HEMATOCRIT 30.7 % (42.0-54.0); HEMOGLOBIN 10.7 g/dL (13.5-18.0); LYMPHOCYTES # (AUTO) 0.7 X10^3/uL (1.3-2.9); LYMPHOCYTES % (AUTO) 9.5 % (21.0-51.0); MEAN CORPUSCULAR HEMOGLOBIN 30.6 pg (27.0-34.0); MEAN CORPUSCULAR HGB CONC 34.7 g/dL (33.0-35.0); MEAN PLATELET VOLUME 6.2 fL (7.4-11.0); MONOCYTES # (AUTO) 0.7 x10^3/uL (0.3-0.8); MONOCYTES % (AUTO) 9.4 % (0.0-13.0); NEUTROPHILS # (AUTO) 5.8 x10^3/uL (2.2-4.8); NEUTROPHILS % (AUTO) 78.6 % (42.0-75.0); PLATELET COUNT 454 X10^3/uL (150.0-450.0); RED BLOOD COUNT 3.49 X10^6/uL (4.7-6.0); RED CELL DISTRIBUTION WIDTH 14.3 % (11.6-16.5); WHITE BLOOD COUNT 7.4 X10^3/uL (3.6-10.0)
[2023-09-19 06:51] LABS: ALANINE AMINOTRANSFERASE 152 Units/L (12-78); ALBUMIN 1.7 g/dL (3.4-5.0); ALKALINE PHOSPHATASE 177 Units/L (46-116); ASPARTATE AMINO TRANSFERASE 98 Units/L (15-37); BLOOD UREA NITROGEN 11 mg/dL (7-18); CALCIUM 7.9 mg/dL (8.5-10.1); CARBON DIOXIDE 26.1 mmol/L (21-32); CHLORIDE 92 mmol/L (98-107); COR CA(FOR HYPOALB) 9.7 mg/dL (8.5-10.1); CREATININE 0.68 mg/dL (0.70-1.30); GLUCOSE 103 mg/dL (65-99); POTASSIUM 3.9 mmol/L (3.5-5.1); TOTAL PROTEIN 7.3 g/dL (6.4-8.2); eGFR NON BLACK RACES > 60 (>60)
[2023-09-19 06:54] LABS: SODIUM 123 mmol/L (136-145)
[2023-09-19 06:55] LABS: ERYTHROCYTE SEDIMENTATION RATE 101 MM/HOUR (0-15)
[2023-09-19 07:10] LABS: BAND NEUTROPHILS % 1 % (0-10); METAMYELOCYTES % 2; PLATELET MORPHOLOGY COMMENT NORMAL (NORMAL)
[2023-09-19] MEDS ORDERED: CORTEF ONE (08:25)
[2023-09-19] MEDS: INVanz INJ 1 GRAM VIAL 1 G in NS 100 ML IV 100 ML IV SCH (12:09)
[2023-09-19 13:27] LABS: CREATININE 0.82 mg/dL (0.70-1.30); VANCOMYCIN,TROUGH 18.8 ug/mL (15-20)
[2023-09-19 16:48] LABS: BILIRUBIN,URINE NEGATIVE (NEGATIVE); BLOOD/HEMOGLOBIN,URINE 5+ (NEGATIVE); GLUCOSE, URINE NEGATIVE (NEGATIVE); KETONES,URINE NEGATIVE (NEGATIVE); LEUKOCYTE ESTERASE ,URINE NEGATIVE (NEGATIVE); NITRITES,URINE NEGATIVE (NEGATIVE); PROTEIN,URINE 2+ (NEGATIVE); UROBILINOGEN,URINE NORMAL (NORMAL)
[2023-09-19 17:00] LABS: APPEARANCE,URINE CLEAR (CLEAR); BACTERIA,URINE TRACE /HPF (NEGATIVE); COLOR,URINE YELLOW (YELLOW); HYALINE CASTS, URINE FEW /LPF (NEGATIVE); SQUAMOUS EPITHELIAL CELL,UR RARE /HPF (NEGATIVE)
--- NOTE | 2023-09-19 20:09 | PCM.PROG ---
Progress Note Progress Note for Day of Date of Exam: 09/19/23 Subjective Subjective: The patient states that he has less swelling and redness of his left hand. Last night his temperature went up to 101.3 F. He had blood cultures x 2 drawn, and this morning, he states he feels better. I will go ahead and check a chest x-ray and a urinalysis, and I will go ahead and empirically start Invanz in the meantime. His sodium did decrease a little bit from 05 20-05 18 so we will keep an eye on that today. His albumin is profoundly low this morning at 1.7. We will give him albumin 25% 100 cc IV x 1 this morning. Past Medical Family Social History Allergies: Allergies No Known Allergies Allergy (Verified 08/31/23 13:05) Review of Systems ROS: No change since H&P Vital Signs and I&O's Vital Signs: Vital Signs Temperature 98.3 F Pulse Rate [Brachial] 79 Respiratory Rate 19 Respiratory Rate 20 Respiratory Rate 18 Respiratory Rate 18 Blood Pressure [Left Arm] 129/72 O2 Sat by Pulse Oximetry 95 Intake and Output: Intake & Output 09/17/23 09/18/23 09/19/23 09/20/23 11:59 11:59 11:59 11:59 Intake Total 3838 / 3838 3645 / 3645 3786 / 3786 2953 / 2953 Output Total 3610 / 3610 6000 / 6000 4340 / 4340 1950 / 1950 Balance 228 / 228 -2355 / -2355 -554 / -554 1003 / 1003 Physical Exam Oriented: Normal and Place Respiratory: Normal Cardiovascular: Normal Skin: Red (Decreasing area of erythema since admission.) and Tender Psychiatric: Normal Mood Description: Calm Affect: Normal Speech Pattern: Clear and Appropriate Laboratory and Diagnostics 09/19/23 05:45 09/19/23 13:00 Labs: 09/16/23 16:40 Aspirate Wound Gram Stain - Final 09/16/23 16:40 Aspirate Wound Culture - Final Staphylococcus Aureus 09/13/23 23:40 Blood Blood Culture Gram Stain - Final 09/13/23 23:40 Blood Blood Culture - Final Staphylococcus Aureus 09/13/23 23:35 Blood Blood Culture Gram Stain - Final 09/13/23 23:35 Blood Blood Culture - Final Staphylococcus Aureus 09/12/23 17:30 Blood Blood Culture Gram Stain - Final 09/12/23 17:30 Blood Blood Culture - Final Staphylococcus Aureus 09/12/23 17:25 Blood Blood Culture Gram Stain - Final 09/12/23 17:25 Blood Blood Culture - Final Staphylococcus Aureus 09/12/23 13:46 Urine,Clean Catch Urine Culture - Final Staphylococcus Aureus Laboratory WBC 7.4 X10^3/uL (3.6-10.0) 09/19/23 05:45 RBC 3.49 X10^6/uL (4.7-6.0) L 09/19/23 05:45 Hgb 10.7 g/dL (13.5-18.0) L 09/19/23 05:45 Hct 30.7 % (42.0-54.0) L 09/19/23 05:45 MCV 88.0 fL (80.0-100.0) 09/19/23 05:45 MCH 30.6 pg (27.0-34.0) 09/19/23 05:45 MCHC 34.7 g/dL (33.0-35.0) 09/19/23 05:45 RDW 14.3 % (11.6-16.5) 09/19/23 05:45 Plt Count 454 X10^3/uL (150.0-450.0) H 09/19/23 05:45 Plt Count Comment Increased (ADEQUATE) 09/19/23 05:45 MPV 6.2 fL (7.4-11.0) L 09/19/23 05:45 Neut % (Auto) 78.6 % (42.0-75.0) H 09/19/23 05:45 Lymph % (Auto) 9.5 % (21.0-51.0) L 09/19/23 05:45 [place] % (Auto) 9.4 % (0.0-13.0) 09/19/23 05:45 Eos % (Auto) 1.9 % (0.9-2.9) 09/19/23 05:45 Baso % (Auto) 0.6 % (0.2-1.0) 09/19/23 05:45 Neut # (Auto) 5.8 x10^3/uL (2.2-4.8) H 09/19/23 05:45 Lymph # (Auto) 0.7 X10^3/uL (1.3-2.9) L 09/19/23 05:45 [place] # (Auto) 0.7 x10^3/uL (0.3-0.8) 09/19/23 05:45 Eos # (Auto) 0.1 x10^3/uL (0.0-0.2) 09/19/23 05:45 Baso # (Auto) 0.0 X10^3/uL (0.0-0.1) 09/19/23 05:45 Absolute Nucleated RBC 0.0 /100WBC 09/19/23 05:45 Total Counted 100 09/19/23 05:45 Neutrophils % (Manual) 78 % (39-76) H 09/19/23 05:45 Band Neutrophils % 1 % (0-10) 09/19/23 05:45 Lymphocytes % (Manual) 8 % (13-43) L 09/19/23 05:45 Monocytes % (Manual) 8 % (4-9) 09/19/23 05:45 Eosinophils % (Manual) 3 % (0-6) 09/19/23 05:45 Metamyelocytes % 2 09/19/23 05:45 Plt Morphology Comment Normal (NORMAL) 09/19/23 05:45 RBC Morphology Normal (NORMAL) 09/19/23 05:45 ESR 101 MM/HOUR (0-15) H 09/19/23 05:45 Sodium 123 mmol/L (136-145) L* 09/19/23 05:45 Corrected Sodium TNP 09/19/23 05:45 Potassium 3.9 mmol/L (3.5-5.1) 09/19/23 05:45 Chloride 92 mmol/L (98-107) L 09/19/23 05:45 Carbon Dioxide 26.1 mmol/L (21-32) 09/19/23 05:45 BUN 11 mg/dL (7-18) 09/19/23 05:45 Creatinine 0.82 mg/dL (0.70-1.30) 09/19/23 13:00 Est GFR (MDRD) Af Amer > 60 (>60) 09/19/23 05:45 Est GFR (MDRD) Non-Af > 60 (>60) 09/19/23 05:45 Glucose 103 mg/dL (65-99) H 09/19/23 05:45 Lactic Acid 1.5 mmol/L (0.4-2.0) 09/12/23 17:25 Calcium 7.9 mg/dL (8.5-10.1) L 09/19/23 05:45 Corrected Calcium 9.7 mg/dL (8.5-10.1) 09/19/23 05:45 Total Bilirubin 0.30 mg/dL (0.2-1.0) 09/19/23 05:45 AST 98 Units/L (15-37) H 09/19/23 05:45 ALT 152 Units/L (12-78) H 09/19/23 05:45 Alkaline Phosphatase 177 Units/L (46-116) H 09/19/23 05:45 C-Reactive Protein 37.70 mg/L (0-3.0) H 09/19/23 05:45 Total Protein 7.3 g/dL (6.4-8.2) 09/19/23 05:45 Albumin 1.7 g/dL (3.4-5.0) L 09/19/23 05:45 Globulin 5.6 g/dL (2.5-4.5) H 09/19/23 05:45 Albumin/Globulin Ratio 0.3 Ratio (1.1-2.1) L 09/19/23 05:45 Specimen Type Clean catch urine 09/19/23 16:30 Urine Color Yellow (YELLOW) 09/19/23 16:30 Urine Appearance Clear (CLEAR) 09/19/23 16:30 Urine pH 6.0 (5.0 - 8.0) 09/19/23 16:30 Ur Specific [place] 1.010 (1.000-1.030) 09/19/23 16:30 Urine Protein 2+ (NEGATIVE) 09/19/23 16:30 Urine Glucose (UA) Negative (NEGATIVE) 09/19/23 16: Urine Ketones Negative (NEGATIVE) 09/19/23 16: Urine Blood 5+ (NEGATIVE) 09/19/23 16:30 Urine Nitrite Negative (NEGATIVE) 09/19/23 16:30 Urine Bilirubin Negative (NEGATIVE) 09/19/23 16:30 Urine Urobilinogen Normal (NORMAL) 09/19/23 16:30 Ur Leukocyte Esterase Negative (NEGATIVE) 09/19/23 16:30 Urine RBC 10-20 /HPF (0-3) A 09/19/23 16:30 Urine WBC 3-5 /HPF (0-5) 09/19/23 16:30 Ur Squamous Epith Cells Rare /HPF (NEGATIVE) 09/19/23 16:30 Amorphous Sediment 1+ /HPF (NEGATIVE) 09/12/23 13:46 Urine Bacteria Trace /HPF (NEGATIVE) 09/19/23 16:30 Hyaline Casts Few /LPF (NEGATIVE) 09/19/23 16:30 Ur Culture Indicated? Yes/culture set up 09/19/23 16:30 Vancomycin Trough 18.8 ug/mL (15-20) 09/19/23 13:00 Random Vancomycin 6.1 ug/mL 09/14/23 20:10 Plan (1) Cellulitis and abscess of hand: Status: Acute Plan: Continue IV vancomycin, I will add oral Bactrim DS and ciprofl oxacin. (2) Urinary tract infection: Status: Acute Plan: MRSA UTI, continue vancomycin. (3) Acute hyponatremia: Status: Acute Plan: Continue hydration with normal saline for correction of his hypokalemia. (4) Hypoalbuminemia: Status: Acute Plan: 25% albumin 100 mL IV x 1 today. I am hoping this will pull some fluid back into his circulation and decrease his edema (5) Fever: Status: Acute Narrative Support Text: Urinalysis shows 5+ blood, 3-5 white cells. Urine culture has been set up. Chest x-ray report is pending. Plan: The patient had blood cultures x 2 drawn last night. I will go ahead and do a chest x-ray and urinalysis this morning. I will empirically cover him with Invanz since he has been in the hospital for a few days now.
[2023-09-20 06:04] LABS: BASOPHILS % (AUTO) 0.5 % (0.2-1.0); EOSINOPHILS # (AUTO) 0.2 x10^3/uL (0.0-0.2); EOSINOPHILS % (AUTO) 2.3 % (0.9-2.9); HEMOGLOBIN 9.8 g/dL (13.5-18.0); LYMPHOCYTES # (AUTO) 0.7 X10^3/uL (1.3-2.9); LYMPHOCYTES % (AUTO) 9.1 % (21.0-51.0); MEAN CORPUSCULAR HEMOGLOBIN 30.6 pg (27.0-34.0); MEAN CORPUSCULAR HGB CONC 34.9 g/dL (33.0-35.0); MEAN CORPUSCULAR VOLUME 87.8 fL (80.0-100.0); MEAN PLATELET VOLUME 6.1 fL (7.4-11.0); MONOCYTES # (AUTO) 0.7 x10^3/uL (0.3-0.8); MONOCYTES % (AUTO) 8.8 % (0.0-13.0); NEUTROPHILS # (AUTO) 6.3 x10^3/uL (2.2-4.8); NEUTROPHILS % (AUTO) 79.3 % (42.0-75.0); PLATELET COUNT 401 X10^3/uL (150.0-450.0); RED BLOOD COUNT 3.19 X10^6/uL (4.7-6.0)
[2023-09-20 06:22] LABS: BLOOD UREA NITROGEN 9 mg/dL (7-18); CALCIUM 7.7 mg/dL (8.5-10.1); CARBON DIOXIDE 26.3 mmol/L (21-32); CHLORIDE 91 mmol/L (98-107); CREATININE 0.67 mg/dL (0.70-1.30); GLUCOSE 103 mg/dL (65-99); POTASSIUM 3.9 mmol/L (3.5-5.1); eGFR NON BLACK RACES > 60 (>60)
--- NOTE | 2023-09-20 06:24 | RAD ---
EXAM: Portable AP chest HISTORY: Fever cellulitis COMPARISON: None FINDINGS: There is an extensive airspace involvement in the left lower lobe with left pleural effusion. The h eart is not enlarged and the right chest is clear. IMPRESSION: Findings described consistent with left lower lobe pneumonia and parapneumonic effusion. Some degre e of atelectasis/volume loss is suggested by diaphragm elevation. THIS IS AN ELECTRONICALLY VERIFIED FINAL REPORT 09/20/2023 6:21 AM - Electronically signed by Epi Urias MD
[2023-09-20 06:25] LABS: SODIUM 124 mmol/L (136-145)
[2023-09-20] MEDS ORDERED: CORTEF ONE (08:14)
--- NOTE | 2023-09-20 09:46 | EKG ---
Test Reason : cp Blood Pressure : */* mmHG Vent. Rate : 81 BPM Atrial Rate : 81 BPM P-R Int : 150 ms QRS Dur : 92 ms QT Int : 388 ms P-R-T Axes : 45 19 58 degrees QTc Int : 450 ms Normal sinus rhythm Normal ECG No previous ECGs available Confirmed by Kuldeep Mabry MD ([id number] on 09/21/2023 7:11:02 AM Referred By: Confirmed By: Kuldeep Mabry MD
[2023-09-20] MEDS: DUONEB 0.5 MG/3 MG (3 mL) NEB SCH (13:15)
[2023-09-20 13:55] LABS: CREATININE 0.81 mg/dL (0.70-1.30); VANCOMYCIN,TROUGH 18.8 ug/mL (15-20)
--- NOTE | 2023-09-20 19:32 | PCM.PROG ---
Progress Note Progress Note for Day of Date of Exam: 09/20/23 Subjective Subjective: The patient states that he is having left anterior chest pain today. We did a troponin that was normal this morning. He is not having any changes in his breathing status. EKG was also done. Chest x-ray yesterday showed that he had a new left lower lobe pneumonia. I told him that is where his pain was coming from. He remains hyponatremic, and his hemoglobin has dropped to 9.8 from just above 10. I will go ahead and start him on IV Protonix for GI protection. We will make sure we do AIT sputum culture today as well as a regular sputum culture. The patient has already been started on IV Invanz yesterday, so we will continue that. His white blood cell count remains normal 8000 today. Repeat chest x-ray as well as routine labs again tomorrow morning. The patient is taking Florinef for hyponatremia. He has been taking this for the last several days. Unfortunately the patient's sodium level has not risen any. There is a medication called Demeclocycline which is antibiotic that is used to treat chronic cases of hyponatremia. I will go ahead and order that tonight for the patient and start him on it as soon as we can to see if it will help him with his chronic hyponatremia. Past Medical Family Social History Allergies: Allergies No Known Allergies Allergy (Verified 08/31/23 13:05) Review of Systems ROS: No change since H&P Vital Signs and I&O's Vital Signs: Vital Signs Temperature 97.8 F Temperature 97.8 F Pulse Rate [Brachial] 71 Pulse Rate [Brachial] 76 Respiratory Rate 20 Respiratory Rate 20 Respiratory Rate 18 Respiratory Rate 18 Respiratory Rate 18 Respiratory Rate 18 Blood Pressure [Left Arm] 121/75 Blood Pressure [Left Arm] 138/72 O2 Sat by Pulse Oximetry 96 O2 Sat by Pulse Oximetry 95 Intake and Output: Intake & Output 09/18/23 09/19/23 09/20/23 09/21/23 11:59 11:59 11:59 11:59 Intake Total 3645 / 3645 3786 / 3786 5814 / 5814 1884 / 1884 Output Total 6000 / 6000 4340 / 4340 4560 / 4560 2950 / 2950 Balance -2355 / -2355 -554 / -554 1254 / 1254 -1066 / -1066 Physical Exam Oriented: Normal and Place Respiratory: Left, Diminished and Rhonchi Cardiovascular: Normal Skin: Red (Decreasing area of erythema since admission.) and Tender Psychiatric: Normal Mood Description: Calm Affect: Normal Speech Pattern: Clear and Appropriate Laboratory and Diagnostics 09/20/23 05:25 09/20/23 13:15 Labs: 09/20/23 16:15 Sputum - Expectorated Sputum - Final 09/18/23 21:00 Blood Blood Culture - Preliminary 09/18/23 20:53 Blood Blood Culture - Preliminary 09/19/23 16:30 Urine,Clean Catch Urine Culture - Preliminary 09/16/23 16:40 Aspirate Wound Gram Stain - Final 09/16/23 16:40 Aspirate Wound Culture - Final Staphylococcus Aureus 09/13/23 23:40 Blood Blood Culture Gram Stain - Final 09/13/23 23:40 Blood Blood Culture - Final Staphylococcus Aureus 09/13/23 23:35 Blood Blood Culture Gram Stain - Final 09/13/23 23:35 Blood Blood Culture - Final Staphylococcus Aureus 09/12/23 17:30 Blood Blood Culture Gram Stain - Final 09/12/23 17:30 Blood Blood Culture - Final Staphylococcus Aureus 09/12/23 17:25 Blood Blood Culture Gram Stain - Final 09/12/23 17:25 Blood Blood Culture - Final Staphylococcus Aureus 09/12/23 13:46 Urine,Clean Catch Urine Culture - Final Staphylococcus Aureus Laboratory WBC 8.0 X10^3/uL (3.6-10.0) 09/20/23 05:25 RBC 3.19 X10^6/uL (4.7-6.0) L 09/20/23 05:25 Hgb 9.8 g/dL (13.5-18.0) L 09/20/23 05:25 Hct 28.0 % (42.0-54.0) L 09/20/23 05:25 MCV 87.8 fL (80.0-100.0) 09/20/23 05:25 MCH 30.6 pg (27.0-34.0) 09/20/23 05:25 MCHC 34.9 g/dL (33.0-35.0) 09/20/23 05:25 RDW 14.0 % (11.6-16.5) 09/20/23 05:25 Plt Count 401 X10^3/uL (150.0-450.0) 09/20/23 05:25 Plt Count Comment Increased (ADEQUATE) 09/19/23 05:45 MPV 6.1 fL (7.4-11.0) L 09/20/23 05:25 Neut % (Auto) 79.3 % (42.0-75.0) H 09/20/23 05:25 Lymph % (Auto) 9.1 % (21.0-51.0) L 09/20/23 05:25 [place] % (Auto) 8.8 % (0.0-13.0) 09/20/23 05:25 Eos % (Auto) 2.3 % (0.9-2.9) 09/20/23 05:25 Baso % (Auto) 0.5 % (0.2-1.0) 09/20/23 05:25 Neut # (Auto) 6.3 x10^3/uL (2.2-4.8) H 09/20/23 05:25 Lymph # (Auto) 0.7 X10^3/uL (1.3-2.9) L 09/20/23 05:25 [place] # (Auto) 0.7 x10^3/uL (0.3-0.8) 09/20/23 05:25 Eos # (Auto) 0.2 x10^3/uL (0.0-0.2) 09/20/23 05:25 Baso # (Auto) 0.0 X10^3/uL (0.0-0.1) 09/20/23 05:25 Absolute Nucleated RBC 0.0 /100WBC 09/20/23 05:25 Total Counted 100 09/19/23 05:45 Neutrophils % (Manual) 78 % (39-76) H 09/19/23 05:45 Band Neutrophils % 1 % (0-10) 09/19/23 05:45 Lymphocytes % (Manual) 8 % (13-43) L 09/19/23 05:45 Monocytes % (Manual) 8 % (4-9) 09/19/23 05:45 Eosinophils % (Manual) 3 % (0-6) 09/19/23 05:45 Metamyelocytes % 2 09/19/23 05:45 Plt Morphology Comment Normal (NORMAL) 09/19/23 05:45 RBC Morphology Normal (NORMAL) 09/19/23 05:45 ESR 101 MM/HOUR (0-15) H 09/19/23 05:45 Sodium 124 mmol/L (136-145) L* 09/20/23 05:25 Corrected Sodium TNP 09/20/23 05:25 Potassium 3.9 mmol/L (3.5-5.1) 09/20/23 05:25 Chloride 91 mmol/L (98-107) L 09/20/23 05:25 Carbon Dioxide 26.3 mmol/L (21-32) 09/20/23 05:25 BUN 9 mg/dL (7-18) 09/20/23 05:25 Creatinine 0.81 mg/dL (0.70-1.30) 09/20/23 13:15 Est GFR (MDRD) Af Amer > 60 (>60) 09/20/23 05:25 Est GFR (MDRD) Non-Af > 60 (>60) 09/20/23 05:25 Glucose 103 mg/dL (65-99) H 09/20/23 05:25 Lactic Acid 1.5 mmol/L (0.4-2.0) 09/12/23 17:25 Calcium 7.7 mg/dL (8.5-10.1) L 09/20/23 05:25 Corrected Calcium 9.7 mg/dL (8.5-10.1) 09/19/23 05:45 Total Bilirubin 0.30 mg/dL (0.2-1.0) 09/19/23 05:45 AST 98 Units/L (15-37) H 09/19/23 05:45 ALT 152 Units/L (12-78) H 09/19/23 05:45 Alkaline Phosphatase 177 Units/L (46-116) H 09/19/23 05:45 Troponin I High Sens 7.0 ng/L (4.0-60.0) 09/20/23 15:15 C-Reactive Protein 37.70 mg/L (0-3.0) H 09/19/23 05:45 Total Protein 7.3 g/dL (6.4-8.2) 09/19/23 05:45 Albumin 1.7 g/dL (3.4-5.0) L 09/19/23 05:45 Globulin 5.6 g/dL (2.5-4.5) H 09/19/23 05:45 Albumin/Globulin Ratio 0.3 Ratio (1.1-2.1) L 09/19/23 05:45 Specimen Type Clean catch urine 09/19/23 16:30 Urine Color Yellow (YELLOW) 09/19/23 16:30 Urine Appearance Clear (CLEAR) 09/19/23 16:30 Urine pH 6.0 (5.0 - 8.0) 09/19/23 16:30 Ur Specific [place] 1.010 (1.000-1.030) 09/19/23 16:30 Urine Protein 2+ (NEGATIVE) 09/19/23 16:30 Urine Glucose (UA) Negative (NEGATIVE) 09/19/23 16:30 Urine Ketones Negative (NEGATIVE) 09/19/23 16:30 Urine Blood 5+ (NEGATIVE) 09/19/23 16:30 Urine Nitrite Negative (NEGATIVE) 09/19/23 16:30 Urine Bilirubin Negative (NEGATIVE) 09/19/23 16:30 Urine Urobilinogen Normal (NORMAL) 09/19/23 16:30 Ur Leukocyte Esterase Negative (NEGATIVE) 09/19/23 16:30 Urine RBC 10-20 /HPF (0-3) A 09/19/23 16:30 Urine WBC 3-5 /HPF (0-5) 09/19/23 16:30 Ur Squamous Epith Cells Rare /HPF (NEGATIVE) 09/19/23 16:30 Amorphous Sediment 1+ /HPF (NEGATIVE) 09/12/23 13:46 Urine Bacteria Trace /HPF (NEGATIVE) 09/19/23 16:30 Hyaline Casts Few /LPF (NEGATIVE) 09/19/23 16:30 Ur Culture Indicated? Yes/culture set up 09/19/23 16:30 Vancomycin Trough 18.8 ug/mL (15-20) 09/20/23 13:15 Random Vancomycin 6.1 ug/mL 09/14/23 20:10 Radiology Reviewed: Yes Plan (1) Cellulitis and abscess of hand: Status: Acute Narrative Support Text: Patient's wound culture grew out Staphylococcus aureus. His hand is much improved today compared to the last few days. Plan: Continue IV vancomycin. (2) Urinary tract infection: Status: Acute Plan: MRSA UTI, continue vancomycin. (3) Acute hyponatremia: Status: Acute Plan: I will order the patient demeclocycline which is used to treat chronic hyponatremia. Patient is currently on Florinef 0.1 mg daily. (4) Hypoalbuminemia: Status: Acute Plan: 25% albumin 100 mL IV x 1 today. I am hoping this will pull some fluid back into his circulation and decrease his edema (5) Fever: Status: Acute Narrative Support Text: Patient has new onset left lower lobe pneumonia diagnosed yesterday morning on 09/19/2023 by chest x-ray. Plan: The patient had blood cultures x 2 drawn last night. I will go ahead and do a chest x-ray and urinalysis this morning. I will empirically cover him with Invanz since he has been in the hospital for a few days now.
[2023-09-20] MEDS: PROTONIX INJ 40 MG VIAL IVP SCH (20:48)
[2023-09-20] MEDS: PULMICORT NEB TX 0.5 MG NEB SCH (21:40)
[2023-09-20] MEDS: DEMECLOCYCLINE HCL PO SCH (22:56)
[2023-09-21 06:33] LABS: BASOPHILS # (AUTO) 0.1 X10^3/uL (0.0-0.1); EOSINOPHILS # (AUTO) 0.2 x10^3/uL (0.0-0.2); HEMATOCRIT 29.9 % (42.0-54.0); HEMOGLOBIN 10.2 g/dL (13.5-18.0); LYMPHOCYTES # (AUTO) 0.8 X10^3/uL (1.3-2.9); LYMPHOCYTES % (AUTO) 11.5 % (21.0-51.0); MEAN CORPUSCULAR VOLUME 88.2 fL (80.0-100.0); MEAN PLATELET VOLUME 6.2 fL (7.4-11.0); MONOCYTES # (AUTO) 0.4 x10^3/uL (0.3-0.8); MONOCYTES % (AUTO) 5.3 % (0.0-13.0); NEUTROPHILS # (AUTO) 5.7 x10^3/uL (2.2-4.8); NEUTROPHILS % (AUTO) 79.2 % (42.0-75.0); PLATELET COUNT 403 X10^3/uL (150.0-450.0); RED BLOOD COUNT 3.39 X10^6/uL (4.7-6.0); RED CELL DISTRIBUTION WIDTH 14.2 % (11.6-16.5); WHITE BLOOD COUNT 7.2 X10^3/uL (3.6-10.0)
[2023-09-21 06:42] LABS: BLOOD UREA NITROGEN 9 mg/dL (7-18); CALCIUM 7.8 mg/dL (8.5-10.1); CARBON DIOXIDE 24.9 mmol/L (21-32); CHLORIDE 91 mmol/L (98-107); CREATININE 0.68 mg/dL (0.70-1.30); GLUCOSE 104 mg/dL (65-99); eGFR NON BLACK RACES > 60 (>60)
[2023-09-21 06:49] LABS: SODIUM 124 mmol/L (136-145)
[2023-09-21 07:09] LABS: MAGNESIUM 1.6 mg/dL (2.0-2.9)
--- NOTE | 2023-09-21 07:22 | RAD ---
EXAM: CHEST, 1 VIEW HISTORY: PNEUMONIA; ORTHO COMPARISON: 09/19/2023 FINDINGS: The cardiomediastinal silhouette is stable. Slightly increasing left-sided effusion. No pneumothorax. The right lung is clear. No acute osseous abnormality. IMPRESSION: Worsening left-sided effusion. THIS IS AN ELECTRONICALLY VERIFIED FINAL REPORT 09/21/2023 7:18 AM - Electronically signed by Seamus Iqbal MD
[2023-09-21] MEDS ORDERED: CORTEF ONE ×2 (08:39→16:24)
--- NOTE | 2023-09-21 10:08 | MRI ---
EXAM:LUMBAR W/O COOHISTORY:LOW BACK PAIN;COMPARISON:CT lumbar spine 08/11/2023TECHNIQUE:Multiplanar multisequence MRI of the lumbar spine was obtained without contrast using standard departmental protocol.FINDINGS:No significant scoliosis. The usual lordosis is maintained.There is abnormal signal at L1, L2, and L4. Low T1, but increased signal on T2 and STIR sequences may indicate bone marrow edema. All 3 of these vertebra has a slightly decreased height so that the findings might represent subacute compression fractures. There were mild compression fractures on the CT from 08/11/2023.Anterior spondylolisthesis of L4 on L5 measures about 6 mm. The remaining alignment is maintained.The cord ends at an appropriate level. Redundancy of the nerve roots at the L3 level indicates a significant stenosis.No hydronephrosis. No abdominal aortic aneurysm. But there are multiple masses in the psoas muscles, right side more than left. This extends into the right iliacus muscle but is incompletely imaged. The findings were not present on the CT from July 2023. Short interval new appearance suggests that this may be inflammatory or hemorrhage. Recommend CT abdomen and pelvis with contrast for further evaluation.Abnormal findings are present at the L3-4 disc. A mass is present anteriorly around the vertebral bodies and posterior involving the epidural space causing canal stenosis. This has increased T2 signal and relatively low T1 signal. The paraspinal and epidural masses could be hematoma or abscess.The canal at L3-4 is severely stenotic at this location with compression of the nerve roots and causing the previously mentioned redundancy more superiorly. No residual CSF space is identified on the axial imaging.Posterior to L3, the epidural mass measures about 13 x 5 mm. Posterior to the L4 vertebra, the epidural mass measures about 19 x 8 mm.There are degenerative changes. But these are relatively mild. No significant disc abnormality or stenosis at T11-12, T12-L1.L1-L2: A diffuse symmetric broad based disc bulge is present. This is minimum Bilateral facet arthropathy is present. AP sac diameter is 11 mm. Mild foraminal stenosis.L2-L3: A diffuse symmetric broad based disc bulge is present. [id number] in size. AP sac diameter measures 11 mm. Bilateral facet arthropathy is present. Mild foraminal stenosis.L4-L5: Moderate pseudo disc bulge associated with the anterior spondylolisthesis. AP sac diameter measures 7-8 mm. Moderate bilateral foraminal stenosis.L5-S1: Mild concentric disc bulge. No canal or foraminal stenosis.IMPRESSION:1. Subacute compression fractures at L1, L2, and L42. Abnormal L3-4 disc with anterior and posterior components suggesting epidural hematoma or abscess and causing severe canal stenosis3. Bilateral psoas muscle and right iliacus muscle masses new since July 2023; this may represent inflammation or hematoma. Recommend CT abdomen and pelvis with contrast for further evaluation4. Moderate spondylosis with stenosisTHIS IS AN ELECTRONICALLY VERIFIED FINAL REPORT09/21/2023 10:05 AM - Electronically signed by John Jean MD
[2023-09-21 13:39] LABS: ALANINE AMINOTRANSFERASE 145 Units/L (12-78); ALKALINE PHOSPHATASE 132 Units/L (46-116); ASPARTATE AMINO TRANSFERASE 86 Units/L (15-37); COR CA(FOR HYPOALB) 9.4 mg/dL (8.5-10.1); TOTAL PROTEIN 7.3 g/dL (6.4-8.2)
[2023-09-21 14:13] LABS: ALANINE AMINOTRANSFERASE 150 Units/L (12-78); ALBUMIN 1.9 g/dL (3.4-5.0); ALKALINE PHOSPHATASE 150 Units/L (46-116); ASPARTATE AMINO TRANSFERASE 98 Units/L (15-37); COR CA(FOR HYPOALB) 9.4 mg/dL (8.5-10.1)
[2023-09-21] MEDS: CORTEF PO SCH (16:27)
--- NOTE | 2023-09-21 16:49 | CT ---
EXAM:ABDCMEN/PELVIS WITH CONHISTORY:abnormal MRI;COMPARISON:CT lumbar spine 08/11/2023 MRI lumbar spine 09/17/2023TECHNIQUE:Multiple CT axial images of the abdomen and pelvis were obtained with IV contrast. Coronal and sagittal images were reconstructed. Dose reduction techniques included Automated Exposure Control (AEC) and adjustment of mA and kV.FINDINGS:Multiple masses in the psoas muscles in right iliacus muscle are confirmed like seen on the MRI. Some of these have enhancing mcdaniels suggesting inflammation. These may be abscesses.This is multi loculated on the right side. In total, the abnormality on the right side measures about 19 cm craniocaudal, 8.5 cm wide and about 7 cm AP. The finding in the left psoas muscle is much smaller measuring about 8.5 cm craniocaudal dimension.There is also soft tissue enlargement around the L3-4 disc space like described on the MRI. The anterior component is well seen but the intracanalicular component is not well seen, as is typical for CT. But this suggests that the findings in the canal seen by MRI are due to epidural abscesses.The superior endplate of L4 has erosive changes suggesting that the findings are due to discitis. But some of the erosive changes could be due to resorption from the known compressive fracture which is at this location also.Trace right and small left pleural effusions are present. Atelectasis noted in the left lower lobe with volume loss. Heart size within normal limits.Liver, gallbladder, spleen, adrenal glands, and pancreas are unremarkable.Renal enhancement is uniform and symmetric with no solid mass. There is no hydronephrosis or significant perirenal edema. The bladder is normally distended. It has no wall thickening or perivesical edema.The bowel is not dilated. There is no wall thickening in the bowel or edema around the bowel.The compression fractures at L1, L2, and L4 are stable in severity. But there is resorption of the superior endplate of L4 and also the superior endplate of L1.IMPRESSION:1. Findings suggesting L3-4 discitis (epidural involvement seen by previous MRI)2. Bilateral psoas muscle abscesses, right side larger than left; right psoas muscle abscess extends to the anterior hip3. Bilateral pleural effusions with left lower lobe atelectasis4. Stable subacute to chronic compression fractures at L1, L2, and L4THIS IS AN ELECTRONICALLY VERIFIED FINAL REPORT09/21/2023 4:46 PM - Electronically signed by John Jean MD
[2023-09-22 06:28] LABS: BASOPHILS % (AUTO) 0.9 % (0.2-1.0); EOSINOPHILS # (AUTO) 0.3 x10^3/uL (0.0-0.2); HEMATOCRIT 27.6 % (42.0-54.0); HEMOGLOBIN 9.5 g/dL (13.5-18.0); LYMPHOCYTES # (AUTO) 0.9 X10^3/uL (1.3-2.9); LYMPHOCYTES % (AUTO) 14.8 % (21.0-51.0); MEAN CORPUSCULAR HEMOGLOBIN 30.3 pg (27.0-34.0); MEAN CORPUSCULAR HGB CONC 34.5 g/dL (33.0-35.0); MEAN CORPUSCULAR VOLUME 87.8 fL (80.0-100.0); MEAN PLATELET VOLUME 6.3 fL (7.4-11.0); MONOCYTES # (AUTO) 0.4 x10^3/uL (0.3-0.8); MONOCYTES % (AUTO) 7.1 % (0.0-13.0); NEUTROPHILS # (AUTO) 4.2 x10^3/uL (2.2-4.8); NEUTROPHILS % (AUTO) 72.2 % (42.0-75.0); PLATELET COUNT 372 X10^3/uL (150.0-450.0); RED BLOOD COUNT 3.14 X10^6/uL (4.7-6.0); RED CELL DISTRIBUTION WIDTH 14.2 % (11.6-16.5); WHITE BLOOD COUNT 5.8 X10^3/uL (3.6-10.0)
[2023-09-22 06:55] LABS: ALANINE AMINOTRANSFERASE 140 Units/L (12-78); ALBUMIN 2.1 g/dL (3.4-5.0); ALKALINE PHOSPHATASE 112 Units/L (46-116); ASPARTATE AMINO TRANSFERASE 85 Units/L (15-37); BLOOD UREA NITROGEN 9 mg/dL (7-18); CALCIUM 7.9 mg/dL (8.5-10.1); CHLORIDE 96 mmol/L (98-107); COR CA(FOR HYPOALB) 9.4 mg/dL (8.5-10.1); CREATININE 0.61 mg/dL (0.70-1.30); GLUCOSE 105 mg/dL (65-99); POTASSIUM 3.6 mmol/L (3.5-5.1); SODIUM 129 mmol/L (136-145); TOTAL PROTEIN 6.8 g/dL (6.4-8.2); eGFR NON BLACK RACES > 60 (>60)
[2023-09-22] MEDS ORDERED: CONSULT PHARMACY - POTASSIUM & MAGNESIUM XX SCH (08:00)
[2023-09-22] MEDS: OMNIPAQUE 350 mg/mL 100 mL BTL 100 ML ONE (08:41)
[2023-09-22] MEDS: READI-CAT 2 ONE (08:41)
[2023-09-22] MEDS: VANCOMYCIN IV *PREMIX 1.5 G/300 ML BAG 1.5 G/300 ML PIGGYBACK IV ONE (08:42)
[2023-09-22] MEDS: K-DUR TAB 20 MEQ PO SCH (08:44)
[2023-09-22] MEDS: CORTEF PO SCH (08:45)
[2023-09-22 12:27] VITALS: TEMP 98.1
[2023-09-22] MEDS: CORTEF ONE ×2 (15:11→15:12)
[2023-09-22 16:08] VITALS: BP 126/70; PULSE 83; O2SAT 96
[2023-09-22 17:41] VITALS: RESP 18
== END 2023-09-22 17:35 | disposition short-term general hospital (02) | DRG 602 ==
LOC: ER 13:27 → MED/SURG 20:06
PROVIDERS: ADMIT Internal Medicine; ATTEND Obstetrics & Gynecology Obstetrics

== ENCOUNTER 2023-10-27 11:03 | Inpatient (IN) ==
--- NOTE | 2023-10-27 11:35 | DR.GENAD ---
HPI Time Seen Time Seen by Provider: 10/27/23 11:24 PCP Primary Care Physician: Dr. Cervantes Complaint/Symptoms Chief Complaint Doctors Comments: 63 y/o male brought in via EMS for evaluation. Patient with a complicated history recently. Fell off a roof in July, had fractures of his lumbar spine then. Developed psoas muscle abscesses in August. Was at another facility, had extensive surgery to treat this. Is on several weeks of IV antibiotic therapy with nafcillin, has since developed diarrhea. Patient with difficulty moving, due to low back pain. Is on pain medication.. Was unable to make it to the bathroom, had diarrhea in the bathroom & fell. No head injury, loss of consciousness or neck pain. Having pain of the right SI joint region, has been going on since the surgery. Pain is sharp, severe, worse with movement and coughing. Denies bowel or bladder incontinence, no fevers or chills, no URI symptoms. Patient caring for himself at home, his spouse recently left him. Chief Complaint:: Pt c/o generalized weakness and diarrhea over the past few weeks. Pt also c/o severe lower back pain that is constant sharp stabbing in nature. Pt states that when he coughs or sneezes the pain radiates down the right hip and all the way down the right leg. Pt states that his weakness has gotten progressively worse over the past week and he did have a fall yesterday. COVID-19 Coronavirus risk:travel/contact w/high risk person: No Has patient experienced Coronavirus symptoms: No Nurses notes reviewed Nurses Notes Review: Yes Source History Provided: Patient Mode of Arrival Mode of Arrival: EMS Timing Onset of Chief Complaint: 10/27/23 PMH PMH Past Medical History: No Past Surgical History: Yes Surgical History: Ortho Surgery Family History History of Family Medical Conditions: Yes Family Medical History: [place], Coronary Artery Disease and Hypertension Social History Does patient currently use any type of tobacco product: Yes Have you used tobacco products in the last 12 months: Yes Type of Tobacco Use: Cigarettes Does any household member use tobacco: No Alcohol Use: None Do you use any recreational Drugs:: No Lives With: Alone Lives Where: Home Travel Risk Coronavirus risk:travel/contact w/high risk person: No Has patient experienced Coronavirus symptoms: No Infectious screening In the last 2 months have you had wt loss of >10#?: NO Have you had fever, night sweats or hemotysis?: No Have you traveled outside the country in the last 6 months?: No Isolation: Standard ROS Review of Systems Constitutional: Weakness Eyes: No Symptoms Reported ENTM: No Symptoms Reported Respiratoy: No Symptoms Reported Cardiovascular: No Symptoms Reported Gastrointestinal/Abdominal: Diarrhea Genitourinary: No Symptoms Reported Neurological: No Symptoms Reported Musculoskeletal: No Symptoms Reported Integumentary: No Symptoms Reported Hematologic/Lymphatic: No Symptoms Reported All Other Systems: Reviewed and Negative PE Vital Signs Vitals: Vital Signs Temperature 97.0 F Pulse Rate 77 Pulse Rate 79 Pulse Rate 82 Pulse Rate 84 Pulse Rate 95 Respiratory Rate 20 Respiratory Rate 16 Respiratory Rate 26 Respiratory Rate 25 Respiratory Rate 25 Respiratory Rate 20 Blood Pressure 162/95 Blood Pressure 167/73 O2 Sat by Pulse Oximetry 97 O2 Sat by Pulse Oximetry 98 O2 Sat by Pulse Oximetry 96 General General Appearance: Alert and In No Apparent Distress Head Head Exam: Normal Inspection, Atraumatic and Normocephalic Eyes Eye exam: PERRL and EOMI ENT ENT Exam: Normal Oropharynx and Mucous Membranes Moist Neck Neck Exam: Normal Inspection Respiratory Respiratory Exam: Normal Lung Sounds Bilat; negative Accessory Muscle Use or Respiratory Distress Cardiovascular Cardiovascular Exam: Regular Rate, Normal Rhythm and Normal Heart Sounds Abdominal Exam Abdominal Exam: Normal Bowel Sounds and Soft; negative Tenderness Extremities Extremities Exam: Normal Inspection and Full ROM; negative Edema Back Back Exam: Tenderness (R SI joint region. ) Neurologic Neurological Exam: Alert, Oriented X3 and CN II-XII Intact; negative Motor Sensory Deficit Skin Skin Exam: Warm and Dry COURSE Treatment Treatment: Workup initiated. Patient given IV fluids labs show low potassium at 2.9, low sodium 133 urinalysis has too numerous to count red blood cells, patient without symptoms of his urine. CT of the pelvis was performed, no acute problems of the right SI joint bony bauer. Does have changes of the right greater than left psoas abscesses evident, some overlying the right SI joint region patient living at home alone, spouse had left him prior to his return from his surgeries. Recommend admission for further hydration and eating his potassium up. Discussed with his attending, Dr. Cervantes, accepts admission. Patient also agreeable to be placed into rehab if this is possible. Dr. Cervantes made aware will continue the IV nafcillin. Will check stools for C. difficile ROR Labs Reviewed Laboratory Results Reviewed?: Yes 10/27/23 11:50 10/27/23 11:50 Laboratory: WBC 6.0 X10^3/uL (3.6-10.0) 10/27/23 11:50 RBC 3.91 X10^6/uL (4.7-6.0) L 10/27/23 11:50 Hgb 11.1 g/dL (13.5-18.0) L 10/27/23 11:50 Hct 32.5 % (42.0-54.0) L 10/27/23 11:50 MCV 83.1 fL (80.0-100.0) 10/27/23 11:50 MCH 28.4 pg (27.0-34.0) 10/27/23 11:50 MCHC 34.1 g/dL (33.0-35.0) 10/27/23 11:50 RDW 16.8 % (11.6-16.5) H 10/27/23 11:50 Plt Count 298 X10^3/uL (150.0-450.0) 10/27/23 11:50 MPV 5.8 fL (7.4-11.0) L 10/27/23 11:50 Neut % (Auto) 67.6 % (42.0-75.0) 10/27/23 11:50 Lymph % (Auto) 19.8 % (21.0-51.0) L 10/27/23 11:50 Person % (Auto) 7.9 % (0.0-13.0) 10/27/23 11:50 Eos % (Auto) 3.4 % (0.9-2.9) H 10/27/23 11:50 Baso % (Auto) 1.3 % (0.2-1.0) H 10/27/23 11:50 Neut # (Auto) 4.1 x10^3/uL (2.2-4.8) 10/27/23 11:50 Lymph # (Auto) 1.2 X10^3/uL (1.3-2.9) L 10/27/23 11:50 Person # (Auto) 0.5 x10^3/uL (0.3-0.8) 10/27/23 11:50 Eos # (Auto) 0.2 x10^3/uL (0.0-0.2) 10/27/23 11:50 Baso # (Auto) 0.1 X10^3/uL (0.0-0.1) 10/27/23 11:50 Absolute Nucleated RBC 0.1 /100WBC 10/27/23 11:50 Sodium 133 mmol/L (136-145) L 10/27/23 11:50 Corrected Sodium 133 mmol/L (136-145) L 10/27/23 11:50 Potassium 2.9 mmol/L (3.5-5.1) L* 10/27/23 11:50 Chloride 95 mmol/L (98-107) L 10/27/23 11:50 Carbon Dioxide 28.7 mmol/L (21-32) 10/27/23 11:50 BUN 7 mg/dL (7-18) 10/27/23 11:50 Creatinine 1.38 mg/dL (0.70-1.30) H 10/27/23 11:50 Est GFR (MDRD) Af Amer > 60 (>60) 10/27/23 11:50 Est GFR (MDRD) Non-Af 56 (>60) L 10/27/23 11:50 Glucose 117 mg/dL (65-99) H 10/27/23 11:50 Calcium 8.9 mg/dL (8.5-10.1) 10/27/23 11:50 Corrected Calcium 10.4 mg/dL (8.5-10.1) H 10/27/23 11:50 Magnesium 1.8 mg/dL (2.0-2.9) L 10/27/23 11:50 Total Bilirubin 1.10 mg/dL (0.2-1.0) H 10/27/23 11:50 AST 15 Units/L (15-37) 10/27/23 11:50 ALT < 6 Units/L (12-78) L 10/27/23 11:50 Alkaline Phosphatase 73 Units/L (46-116) 10/27/23 11:50 Total Protein 8.3 g/dL (6.4-8.2) H 10/27/23 11:50 Albumin 2.1 g/dL (3.4-5.0) L 10/27/23 11:50 Globulin 6.2 g/dL (2.5-4.5) H 10/27/23 11:50 Albumin/Globulin Ratio 0.3 Ratio (1.1-2.1) L 10/27/23 11:50 Lipase 48 Units/L (16-77) 10/27/23 11:50 Specimen Type Clean catch urine 10/27/23 11:35 Urine Color Yellow (YELLOW) 10/27/23 11:35 Urine Appearance Cloudy (CLEAR) 10/27/23 11:35 Urine pH 7.0 (5.0 - 8.0) 10/27/23 11:35 Ur Specific Orwell 1.010 (1.000-1.030) 10/27/23 11:35 Urine Protein 3+ (NEGATIVE) 10/27/23 11:35 Urine Glucose (UA) Negative (NEGATIVE) 10/27/23 11:35 Urine Ketones Negative (NEGATIVE) 10/27/23 11:35 Urine Blood 5+ (NEGATIVE) 10/27/23 11:35 Urine Nitrite Negative (NEGATIVE) 10/27/23 11:35 Urine Bilirubin Negative (NEGATIVE) 10/27/23 11:35 Urine Urobilinogen Normal (NORMAL) 10/27/23 11:35 Ur Leukocyte Esterase Negative (NEGATIVE) 10/27/23 11:35 Urine RBC Tntc /HPF (0-3) A 10/27/23 11:35 Urine WBC 0-2 /HPF (0-5) 10/27/23 11:35 Ur Squamous Epith Cells Rare /HPF (NEGATIVE) 10/27/23 11:35 Urine Bacteria Negative /HPF (NEGATIVE) 10/27/23 11:35 Ur Culture Indicated? No/not indicated 10/27/23 11:35 XRAY XRAY Interpreted by: Radiologist X-ray Results: EXAM: CT pelvis without contrast HISTORY: Right SI joint pain COMPARISON: 10/22/2023 FINDINGS: Pelvic bones are intact. SI joints are intact and without evidence for erosive or degenerative change. The hip joints are bilaterally intact. No joint erosions are identified. No periarticular soft tissue abnormalities identified. No fracture, lytic, or blastic lesion identified. No hip joint effusions or periarticular soft tissue abnormality identified. Evaluation of the patient's known bilateral psoas muscle abscesses is severely limited due to the lack of intravenous contrast. The left distal psoas muscle abscess is barely visualized and measures a proximally 1.5 cm. It measured 1.9 cm on the prior examination. There is enlargement of the right psoas muscle partially due to the patient's larger right psoas abscess which is extremely poorly defined due to the lack of intravenous contrast. It does however appear to involve the right iliopsoas muscle anterior to the right SI joint. This could be the etiology of the patient's right SI joint pain. Further evaluation with MRI of the pelvis with and without contrast may be of further diagnostic value in assessing the right psoas abscess, involvement of the right iliopsoas muscle and possible involvement of the right SI joint, right sacrum and right iliac bone. IMPRESSION: No definite bony abnormality identified the SI joints appear without obvious erosive change or other abnormality. Poor delineation of the patient's known bilateral hbfyh-[id number]-lsol-left psoas abscesses due to the lack of intravenous contrast. It should be noted that the right psoas abscess appears also to involve the right iliopsoas muscle anterior to the right SI joint which could contribute to symptoms in that area. MRI of the pelvis with and without contrast would be of further diagnostic value in assessing the psoas abscess, iliopsoas muscle involvement, possible involvement of the right SI joint, right iliac bone and right sacrum. THIS IS AN ELECTRONICALLY VERIFIED FINAL REPORT 10/27/2023 1:13 PM - Electronically signed by Seamus Iqbal MD Opioid Opioid Risk Tool Age (Paulo box if 16-45): No History of Preadolescent Sexual Abuse: No Total: 0 Total Score Risk Category: Low Risk Copyright: Tom LU predicting aberrant behaviors Discharge Plan Diagnosis Discharge Problem: Failure to thrive, Generalized weakness, Acute hypokalemia Discharge Plan Patient Disposition: 09 ADMITTED INPATIENT Condition: Stable Prescriptions: No Action hydrocodone-acetaminophen 10-325 mg Tablet 1 tab PO Q6H PRN nafcillin 10 gram Recon Soln 12 g IV CONTINUOUS Rx Instructions: 12 gram continuous infusion every 24 hours potassium chloride 20 mEq Tablet Extended Release 20 meq PO BID Health Concerns: Post Hospitalization: new medications and changes needed to prevent readmission or further decline. Pt educated and given instructions on all concerns. Plan of Treatment: Continue with present treatment and follow up plan. Pt is to keep follow up appointment as instructed and take medications as ordered. Orders to Discharge Patient Discharge Orders: Transfer (Routine); Ordered 10/27/23 Ordered By: Aurelio Cruz Follow ups/Referrals Follow ups/Referrals: MARY CERVANTES [Primary Care Provider] - 3 days [facility],None [STAFF PHYSICIAN] - 3 days Instructions Stand Alone Forms: Post Hospital Follow Up Care
--- NOTE | 2023-10-27 11:42 | RAD ---
EXAM:CHEST, 1 VIEWHISTORY:WEAKNESS;COMPARISON:Prior study or studies were utilized for comparison during interpretation with the most relevant dated 09/21/2023TECHNIQUE:CHEST, 1 VIEWFINDINGS:Chest:Lines and tubes: Cardiac leads overlie the chest.Mediastinum: Cardiac and mediastinal shadow is within normal limits for size and contour.Pulmonary vessels: No pulmonary vascular congestion.Lung myles: No suspicious airspace opacity.Pleura: No effusion. No pneumothorax.Bones and soft tissues: No acute osseous or soft tissue abnormality.IMPRESSION:1. No acute cardiopulmonary abnormalityTHIS IS AN ELECTRONICALLY VERIFIED FINAL REPORT10/27/2023 11:39 AM - Electronically signed by Kvng Woods MD
[2023-10-27] MEDS: NS 1,000 ML IV 1,000 ML IV ONE (11:52)
[2023-10-27 11:59] LABS: BASOPHILS # (AUTO) 0.1 X10^3/uL (0.0-0.1); BASOPHILS % (AUTO) 1.3 % (0.2-1.0); EOSINOPHILS # (AUTO) 0.2 x10^3/uL (0.0-0.2); EOSINOPHILS % (AUTO) 3.4 % (0.9-2.9); HEMATOCRIT 32.5 % (42.0-54.0); HEMOGLOBIN 11.1 g/dL (13.5-18.0); LYMPHOCYTES # (AUTO) 1.2 X10^3/uL (1.3-2.9); LYMPHOCYTES % (AUTO) 19.8 % (21.0-51.0); MEAN CORPUSCULAR HEMOGLOBIN 28.4 pg (27.0-34.0); MEAN CORPUSCULAR HGB CONC 34.1 g/dL (33.0-35.0); MEAN CORPUSCULAR VOLUME 83.1 fL (80.0-100.0); MEAN PLATELET VOLUME 5.8 fL (7.4-11.0); MONOCYTES # (AUTO) 0.5 x10^3/uL (0.3-0.8); MONOCYTES % (AUTO) 7.9 % (0.0-13.0); NEUTROPHILS # (AUTO) 4.1 x10^3/uL (2.2-4.8); NEUTROPHILS % (AUTO) 67.6 % (42.0-75.0); PLATELET COUNT 298 X10^3/uL (150.0-450.0); RED BLOOD COUNT 3.91 X10^6/uL (4.7-6.0); RED CELL DISTRIBUTION WIDTH 16.8 % (11.6-16.5)
[2023-10-27 12:02] LABS: BILIRUBIN,URINE NEGATIVE (NEGATIVE); BLOOD/HEMOGLOBIN,URINE 5+ (NEGATIVE); GLUCOSE, URINE NEGATIVE (NEGATIVE); KETONES,URINE NEGATIVE (NEGATIVE); LEUKOCYTE ESTERASE ,URINE NEGATIVE (NEGATIVE); NITRITES,URINE NEGATIVE (NEGATIVE); PROTEIN,URINE 3+ (NEGATIVE); UROBILINOGEN,URINE NORMAL (NORMAL)
[2023-10-27 12:12] LABS: ALANINE AMINOTRANSFERASE < 6 Units/L (12-78); ALBUMIN 2.1 g/dL (3.4-5.0); ALKALINE PHOSPHATASE 73 Units/L (46-116); ASPARTATE AMINO TRANSFERASE 15 Units/L (15-37); BLOOD UREA NITROGEN 7 mg/dL (7-18); CALCIUM 8.9 mg/dL (8.5-10.1); CARBON DIOXIDE 28.7 mmol/L (21-32); CHLORIDE 95 mmol/L (98-107); COR CA(FOR HYPOALB) 10.4 mg/dL (8.5-10.1); COR NA(FOR HYPERGLY) 133 mmol/L (136-145); CREATININE 1.38 mg/dL (0.70-1.30); GLUCOSE 117 mg/dL (65-99); LIPASE 48 Units/L (16-77); MAGNESIUM 1.8 mg/dL (2.0-2.9); SODIUM 133 mmol/L (136-145); TOTAL PROTEIN 8.3 g/dL (6.4-8.2); eGFR NON BLACK RACES 56 (>60)
[2023-10-27 12:28] LABS: POTASSIUM 2.9 mmol/L (3.5-5.1)
[2023-10-27 12:29] LABS: APPEARANCE,URINE CLOUDY (CLEAR); BACTERIA,URINE NEGATIVE /HPF (NEGATIVE); COLOR,URINE YELLOW (YELLOW); RBC,URINE TNTC /HPF (0-3); SQUAMOUS EPITHELIAL CELL,UR RARE /HPF (NEGATIVE)
[2023-10-27] MEDS: ZOFRAN INJ 4 MG VIAL IVP ONE (12:40)
[2023-10-27] MEDS: DILAUDID INJ IVP ONE (12:41)
--- NOTE | 2023-10-27 13:16 | CT ---
EXAM:CT pelvis without contrastHISTORY:Right SI joint painCOMPARISON:10/22/2023FINDINGS:Pelvic bones are intact. SI joints are intact and without evidence for erosive or degenerative change. The hip joints are bilaterally intact. No joint erosions are identified. No periarticular soft tissue abnormalities identified. No fracture, lytic, or blastic lesion identified. No hip joint effusions or periarticular soft tissue abnormality identified. Evaluation of the patient's known bilateral psoas muscle abscesses is severely limited due to the lack of intravenous contrast. The left distal psoas muscle abscess is barely visualized and measures a proximally 1.5 cm. It measured 1.9 cm on the prior examination. There is enlargement of the right psoas muscle partially due to the patient's larger right psoas abscess which is extremely poorly defined due to the lack of intravenous contrast. It does however appear to involve the right iliopsoas muscle anterior to the right SI joint. This could be the etiology of the patient's right SI joint pain. Further evaluation with MRI of the pelvis with and without contrast may be of further diagnostic value in assessing the right psoas abscess, involvement of the right iliopsoas muscle and possible involvement of the right SI joint, right sacrum and right iliac bone.IMPRESSION:No definite bony abnormality identified the SI joints appear without obvious erosive change or other abnormality.Poor delineation of the patient's known bilateral rqmeh-bgtabtk-weab-left psoas abscesses due to the lack of intravenous contrast. It should be noted that the right psoas abscess appears also to involve the right iliopsoas muscle anterior to the right SI joint which could contribute to symptoms in that area. MRI of the pelvis with and without contrast would be of further diagnostic value in assessing the psoas abscess, iliopsoas muscle involvement, possible involvement of the right SI joint, right iliac bone and right sacrum.THIS IS AN ELECTRONICALLY VERIFIED FINAL REPORT10/27/2023 1:13 PM - Electronically signed by Seamus Iqbal MD
[2023-10-27] MEDS: K-RIDER 10 MEQ/100 ML WATER 10 MEQ/100 ML BAG IV ONE (13:37)
[2023-10-27] MEDS: NS 500 ML IV 500 ML IV ONE (13:57)
[2023-10-27] MEDS ORDERED: NAFCILLIN SODIUM IV SCH (15:00)
[2023-10-27] MEDS ORDERED: NS IV SCH (15:00)
[2023-10-27] MEDS ORDERED: CONSULT PHARMACY - POTASSIUM & MAGNESIUM XX SCH (16:53)
[2023-10-27] MEDS ORDERED: NAFCILLIN IV SCH (16:53)
[2023-10-27] MEDS: D5 1/2 NS + KCL 20 MEQ/L 1,000 ML IV SCH (17:41)
[2023-10-27] MEDS: NORCO 10/325 TAB PO PRN (17:41)
[2023-10-27] MEDS ORDERED: PATIENT'S HOME MEDICATION IV SCH (18:00)
[2023-10-27] MEDS: [UNRECOGNIZED DRUG - OTHER] IV SCH (20:05)
[2023-10-27] MEDS: K-DUR TAB 20 MEQ PO SCH ×2 (20:26→21:30)
[2023-10-27] MEDS: MAG-OX TAB PO SCH (20:26)
[2023-10-27] MEDS: PEPCID TAB 20 MG PO SCH (22:58)
[2023-10-28 05:25] LABS: BASOPHILS % (AUTO) 0.9 % (0.2-1.0); EOSINOPHILS # (AUTO) 0.4 x10^3/uL (0.0-0.2); EOSINOPHILS % (AUTO) 7.4 % (0.9-2.9); HEMOGLOBIN 9.5 g/dL (13.5-18.0); LYMPHOCYTES # (AUTO) 1.5 X10^3/uL (1.3-2.9); LYMPHOCYTES % (AUTO) 29.8 % (21.0-51.0); MEAN CORPUSCULAR HEMOGLOBIN 28.4 pg (27.0-34.0); MEAN CORPUSCULAR HGB CONC 34.1 g/dL (33.0-35.0); MEAN CORPUSCULAR VOLUME 83.2 fL (80.0-100.0); MEAN PLATELET VOLUME 6.2 fL (7.4-11.0); MONOCYTES # (AUTO) 0.5 x10^3/uL (0.3-0.8); MONOCYTES % (AUTO) 9.2 % (0.0-13.0); NEUTROPHILS # (AUTO) 2.7 x10^3/uL (2.2-4.8); NEUTROPHILS % (AUTO) 52.7 % (42.0-75.0); PLATELET COUNT 252 X10^3/uL (150.0-450.0); RED BLOOD COUNT 3.36 X10^6/uL (4.7-6.0); RED CELL DISTRIBUTION WIDTH 17.1 % (11.6-16.5); WHITE BLOOD COUNT 5.1 X10^3/uL (3.6-10.0)
[2023-10-28 05:36] LABS: ALANINE AMINOTRANSFERASE < 6 Units/L (12-78); ALBUMIN 1.7 g/dL (3.4-5.0); ALKALINE PHOSPHATASE 58 Units/L (46-116); ASPARTATE AMINO TRANSFERASE 12 Units/L (15-37); BLOOD UREA NITROGEN 10 mg/dL (7-18); CALCIUM 8.1 mg/dL (8.5-10.1); CARBON DIOXIDE 30.6 mmol/L (21-32); CHLORIDE 98 mmol/L (98-107); COR CA(FOR HYPOALB) 9.9 mg/dL (8.5-10.1); COR NA(FOR HYPERGLY) 134 mmol/L (136-145); CREATININE 1.44 mg/dL (0.70-1.30); GLUCOSE 135 mg/dL (65-99); MAGNESIUM 1.9 mg/dL (2.0-2.9); SODIUM 133 mmol/L (136-145); eGFR NON BLACK RACES 53 (>60)
[2023-10-28] MEDS ORDERED: CONSULT PHARMACY - POTASSIUM & MAGNESIUM XX SCH (07:00)
[2023-10-28] MEDS: MAG-OX TAB PO SCH (08:29)
[2023-10-28] MEDS: VSL#3 PROBIOTIC CAP 112.5 B PO SCH (08:29)
[2023-10-28] MEDS: LYRICA CAP 150 mg PO SCH (11:34)
[2023-10-28] MEDS: LR 1,000 ML IV 1,000 ML IV SCH (11:41)
[2023-10-28] MEDS: MAGNESIUM SULFATE 1 GRAM/100 mL PREMIX 1 G/100 ML BAG IV SCH (11:54)
[2023-10-28] MEDS: LIDODERM 5% PATCH TD SCH (12:05)
[2023-10-28] MEDS: NAFCILLIN SODIUM 2 G in NS 100 ML IV 100 ML IV SCH (13:07)
[2023-10-29 05:17] LABS: BASOPHILS % (AUTO) 0.6 % (0.2-1.0); EOSINOPHILS # (AUTO) 0.3 x10^3/uL (0.0-0.2); EOSINOPHILS % (AUTO) 6.1 % (0.9-2.9); HEMATOCRIT 28.7 % (42.0-54.0); HEMOGLOBIN 9.7 g/dL (13.5-18.0); LYMPHOCYTES # (AUTO) 1.7 X10^3/uL (1.3-2.9); LYMPHOCYTES % (AUTO) 29.3 % (21.0-51.0); MEAN CORPUSCULAR HEMOGLOBIN 28.1 pg (27.0-34.0); MEAN CORPUSCULAR HGB CONC 33.9 g/dL (33.0-35.0); MEAN CORPUSCULAR VOLUME 82.9 fL (80.0-100.0); MEAN PLATELET VOLUME 6.3 fL (7.4-11.0); MONOCYTES # (AUTO) 0.5 x10^3/uL (0.3-0.8); MONOCYTES % (AUTO) 8.5 % (0.0-13.0); NEUTROPHILS # (AUTO) 3.1 x10^3/uL (2.2-4.8); NEUTROPHILS % (AUTO) 55.5 % (42.0-75.0); PLATELET COUNT 249 X10^3/uL (150.0-450.0); RED BLOOD COUNT 3.47 X10^6/uL (4.7-6.0); RED CELL DISTRIBUTION WIDTH 17.6 % (11.6-16.5); WHITE BLOOD COUNT 5.6 X10^3/uL (3.6-10.0)
[2023-10-29 05:25] LABS: ALANINE AMINOTRANSFERASE < 6 Units/L (12-78); ALBUMIN 1.7 g/dL (3.4-5.0); ALKALINE PHOSPHATASE 60 Units/L (46-116); ASPARTATE AMINO TRANSFERASE 12 Units/L (15-37); BLOOD UREA NITROGEN 10 mg/dL (7-18); CALCIUM 8.3 mg/dL (8.5-10.1); CARBON DIOXIDE 30.9 mmol/L (21-32); CHLORIDE 100 mmol/L (98-107); COR CA(FOR HYPOALB) 10.1 mg/dL (8.5-10.1); COR NA(FOR HYPERGLY) 134 mmol/L (136-145); CREATININE 1.35 mg/dL (0.70-1.30); GLUCOSE 118 mg/dL (65-99); MAGNESIUM 2.4 mg/dL (2.0-2.9); POTASSIUM 3.8 mmol/L (3.5-5.1); SODIUM 134 mmol/L (136-145); TOTAL PROTEIN 7.1 g/dL (6.4-8.2); eGFR NON BLACK RACES 57 (>60)
[2023-10-29] MEDS: K-DUR TAB 20 MEQ PO ONE (06:12)
[2023-10-29] MEDS ORDERED: CONSULT PHARMACY - POTASSIUM & MAGNESIUM XX SCH (07:00)
--- NOTE | 2023-10-29 07:02 | RAD ---
EXAM:ACUTE ABDOMEN SERI ESHISTORY:ABDOMINAL PAIN W/DIARRHEA; ORTHOCOMPARISON:No relevant prior studies available.TECHNIQUE:AP supine and upright abdominal radiographs with chest radiography, 3 images.FINDINGS:Gas and stool in non distended colon.Gas in scattered loops of non-distended small bowel.No gross free air.No abnormal calcifications.Lungs are clear of focal airspace disease.No cardiomegaly.No pneumothorax.No pleural effusion.No acute osseous abnormality.IMPRESSION:No acute intra-abdominal or intrathoracic abnormality detected.THIS IS AN ELECTRONICALLY VERIFIED FINAL REPORT10/29/2023 6:58 AM - Electronically signed by Kvng Woods MD
[2023-10-29] MEDS: NS 500 ML IV 500 ML IV ONE (07:29)
[2023-10-30] MEDS: LINZESS PO SCH (12:39)
[2023-10-30] MEDS: COLACE CAP 100 MG PO SCH (20:05)
[2023-10-31] MEDS ORDERED: LINZESS PO SCH (09:00)
[2023-10-31] MEDS: PROCRIT or EPOGEN VIAL 10,000 UNITS SC ONE (12:03)
[2023-11-01 06:16] LABS: BASOPHILS # (AUTO) 0.1 X10^3/uL (0.0-0.1); BASOPHILS % (AUTO) 1.1 % (0.2-1.0); EOSINOPHILS # (AUTO) 0.3 x10^3/uL (0.0-0.2); EOSINOPHILS % (AUTO) 4.5 % (0.9-2.9); HEMATOCRIT 28.1 % (42.0-54.0); HEMOGLOBIN 9.6 g/dL (13.5-18.0); LYMPHOCYTES # (AUTO) 2.4 X10^3/uL (1.3-2.9); LYMPHOCYTES % (AUTO) 34.7 % (21.0-51.0); MEAN CORPUSCULAR HEMOGLOBIN 28.3 pg (27.0-34.0); MEAN CORPUSCULAR HGB CONC 34.1 g/dL (33.0-35.0); MEAN CORPUSCULAR VOLUME 82.9 fL (80.0-100.0); MEAN PLATELET VOLUME 6.2 fL (7.4-11.0); MONOCYTES # (AUTO) 0.5 x10^3/uL (0.3-0.8); MONOCYTES % (AUTO) 6.9 % (0.0-13.0); NEUTROPHILS # (AUTO) 3.7 x10^3/uL (2.2-4.8); NEUTROPHILS % (AUTO) 52.8 % (42.0-75.0); PLATELET COUNT 253 X10^3/uL (150.0-450.0); RED BLOOD COUNT 3.39 X10^6/uL (4.7-6.0); RED CELL DISTRIBUTION WIDTH 17.8 % (11.6-16.5)
[2023-11-01 06:27] LABS: ALANINE AMINOTRANSFERASE < 6 Units/L (12-78); ALBUMIN 1.8 g/dL (3.4-5.0); ALKALINE PHOSPHATASE 63 Units/L (46-116); ASPARTATE AMINO TRANSFERASE 16 Units/L (15-37); BLOOD UREA NITROGEN 14 mg/dL (7-18); CARBON DIOXIDE 29.2 mmol/L (21-32); CHLORIDE 100 mmol/L (98-107); COR CA(FOR HYPOALB) 10.8 mg/dL (8.5-10.1); CREATININE 1.45 mg/dL (0.70-1.30); GLUCOSE 99 mg/dL (65-99); POTASSIUM 4.4 mmol/L (3.5-5.1); SODIUM 137 mmol/L (136-145); TOTAL PROTEIN 7.4 g/dL (6.4-8.2); eGFR NON BLACK RACES 53 (>60)
[2023-11-01 06:38] LABS: PLATELET MORPHOLOGY COMMENT NORMAL (NORMAL)
[2023-11-01] MEDS ORDERED: TOPROL XL PO ONE (09:37)
[2023-11-01] MEDS: TOPROL XL PO SCH (09:43)
[2023-11-02 05:18] LABS: ALANINE AMINOTRANSFERASE < 6 Units/L (12-78); ALBUMIN 2.2 g/dL (3.4-5.0); ALKALINE PHOSPHATASE 76 Units/L (46-116); ASPARTATE AMINO TRANSFERASE 18 Units/L (15-37); BLOOD UREA NITROGEN 17 mg/dL (7-18); CALCIUM 9.1 mg/dL (8.5-10.1); CARBON DIOXIDE 30.3 mmol/L (21-32); CHLORIDE 98 mmol/L (98-107); COR CA(FOR HYPOALB) 10.5 mg/dL (8.5-10.1); GLUCOSE 109 mg/dL (65-99); POTASSIUM 4.4 mmol/L (3.5-5.1); SODIUM 137 mmol/L (136-145); TOTAL PROTEIN 8.5 g/dL (6.4-8.2); eGFR NON BLACK RACES 51 (>60)
[2023-11-02 06:14] LABS: BASOPHILS # (AUTO) 0.1 X10^3/uL (0.0-0.1); BASOPHILS % (AUTO) 1.2 % (0.2-1.0); EOSINOPHILS # (AUTO) 0.2 x10^3/uL (0.0-0.2); HEMATOCRIT 34.2 % (42.0-54.0); LYMPHOCYTES # (AUTO) 1.2 X10^3/uL (1.3-2.9); LYMPHOCYTES % (AUTO) 16.7 % (21.0-51.0); MEAN CORPUSCULAR HEMOGLOBIN 28.4 pg (27.0-34.0); MEAN CORPUSCULAR HGB CONC 33.8 g/dL (33.0-35.0); MEAN CORPUSCULAR VOLUME 83.8 fL (80.0-100.0); MONOCYTES # (AUTO) 0.1 x10^3/uL (0.3-0.8); MONOCYTES % (AUTO) 1.1 % (0.0-13.0); NEUTROPHILS # (AUTO) 5.8 x10^3/uL (2.2-4.8); PLATELET COUNT 360 X10^3/uL (150.0-450.0); RED BLOOD COUNT 4.08 X10^6/uL (4.7-6.0); RED CELL DISTRIBUTION WIDTH 17.6 % (11.6-16.5); WHITE BLOOD COUNT 7.5 X10^3/uL (3.6-10.0)
[2023-11-02 06:16] LABS: HEMOGLOBIN 11.6 g/dL (13.5-18.0)
[2023-11-02] MEDS ORDERED: TOPROL XL PO ONE (08:26)
[2023-11-02] MEDS: PEPCID TAB 20 MG PO SCH (09:33)
[2023-11-02] MEDS ORDERED: NS 1,000 ML IV 1,000 ML ONE (09:45)
[2023-11-02] MEDS ORDERED: RIFADIN PO SCH (10:00)
[2023-11-02] MEDS: BACTRIM DS TAB PO SCH (10:28)
[2023-11-02] MEDS: MICARDIS PO SCH (10:28)
[2023-11-02] MEDS: NS 1,000 ML IV 1,000 ML IV ONE (10:29)
[2023-11-03 07:07] LABS: ALANINE AMINOTRANSFERASE < 6 Units/L (12-78); ALBUMIN 1.6 g/dL (3.4-5.0); ALKALINE PHOSPHATASE 53 Units/L (46-116); ASPARTATE AMINO TRANSFERASE 13 Units/L (15-37); BLOOD UREA NITROGEN 18 mg/dL (7-18); CARBON DIOXIDE 27.5 mmol/L (21-32); CHLORIDE 101 mmol/L (98-107); COR CA(FOR HYPOALB) 9.9 mg/dL (8.5-10.1); COR NA(FOR HYPERGLY) 137 mmol/L (136-145); CREATININE 1.55 mg/dL (0.70-1.30); GLUCOSE 113 mg/dL (65-99); POTASSIUM 3.5 mmol/L (3.5-5.1); SODIUM 137 mmol/L (136-145); TOTAL PROTEIN 6.7 g/dL (6.4-8.2); eGFR NON BLACK RACES 49 (>60)
[2023-11-03 07:13] LABS: BASOPHILS # (AUTO) 0.1 X10^3/uL (0.0-0.1); BASOPHILS % (AUTO) 0.9 % (0.2-1.0); EOSINOPHILS # (AUTO) 0.2 x10^3/uL (0.0-0.2); EOSINOPHILS % (AUTO) 2.4 % (0.9-2.9); HEMATOCRIT 24.8 % (42.0-54.0); HEMOGLOBIN 8.5 g/dL (13.5-18.0); LYMPHOCYTES # (AUTO) 2.1 X10^3/uL (1.3-2.9); LYMPHOCYTES % (AUTO) 23.4 % (21.0-51.0); MEAN CORPUSCULAR HEMOGLOBIN 28.5 pg (27.0-34.0); MEAN CORPUSCULAR HGB CONC 34.3 g/dL (33.0-35.0); MEAN CORPUSCULAR VOLUME 83.2 fL (80.0-100.0); MEAN PLATELET VOLUME 6.1 fL (7.4-11.0); MONOCYTES # (AUTO) 0.8 x10^3/uL (0.3-0.8); MONOCYTES % (AUTO) 8.7 % (0.0-13.0); NEUTROPHILS # (AUTO) 5.9 x10^3/uL (2.2-4.8); NEUTROPHILS % (AUTO) 64.6 % (42.0-75.0); PLATELET COUNT 227 X10^3/uL (150.0-450.0); RED BLOOD COUNT 2.99 X10^6/uL (4.7-6.0); RED CELL DISTRIBUTION WIDTH 18.1 % (11.6-16.5); WHITE BLOOD COUNT 9.1 X10^3/uL (3.6-10.0)
[2023-11-03] MEDS ORDERED: TOPROL XL PO ONE (09:50)
[2023-11-03] MEDS: MULTIHANCE INJ VIAL ONE (17:51)
[2023-11-04 06:27] LABS: BASOPHILS # (AUTO) 0.1 X10^3/uL (0.0-0.1); BASOPHILS % (AUTO) 1.1 % (0.2-1.0); EOSINOPHILS # (AUTO) 0.2 x10^3/uL (0.0-0.2); HEMATOCRIT 25.5 % (42.0-54.0); HEMOGLOBIN 8.7 g/dL (13.5-18.0); LYMPHOCYTES % (AUTO) 28.9 % (21.0-51.0); MEAN CORPUSCULAR HEMOGLOBIN 28.4 pg (27.0-34.0); MEAN CORPUSCULAR HGB CONC 33.9 g/dL (33.0-35.0); MEAN CORPUSCULAR VOLUME 83.7 fL (80.0-100.0); MEAN PLATELET VOLUME 6.5 fL (7.4-11.0); MONOCYTES # (AUTO) 0.7 x10^3/uL (0.3-0.8); MONOCYTES % (AUTO) 9.6 % (0.0-13.0); NEUTROPHILS % (AUTO) 57.4 % (42.0-75.0); PLATELET COUNT 269 X10^3/uL (150.0-450.0); RED BLOOD COUNT 3.05 X10^6/uL (4.7-6.0); RED CELL DISTRIBUTION WIDTH 18.8 % (11.6-16.5)
[2023-11-04 06:47] LABS: ALANINE AMINOTRANSFERASE < 6 Units/L (12-78); ALBUMIN 1.8 g/dL (3.4-5.0); ALKALINE PHOSPHATASE 55 Units/L (46-116); ASPARTATE AMINO TRANSFERASE 11 Units/L (15-37); BLOOD UREA NITROGEN 13 mg/dL (7-18); CALCIUM 8.7 mg/dL (8.5-10.1); CARBON DIOXIDE 27.8 mmol/L (21-32); CHLORIDE 103 mmol/L (98-107); COR CA(FOR HYPOALB) 10.5 mg/dL (8.5-10.1); COR NA(FOR HYPERGLY) 137 mmol/L (136-145); CREATININE 1.69 mg/dL (0.70-1.30); GLUCOSE 115 mg/dL (65-99); POTASSIUM 4.1 mmol/L (3.5-5.1); SODIUM 137 mmol/L (136-145); eGFR NON BLACK RACES 44 (>60)
[2023-11-04] MEDS ORDERED: CONSULT PHARMACY - POTASSIUM & MAGNESIUM XX SCH (08:00)
[2023-11-04] MEDS ORDERED: TOPROL XL PO ONE (09:04)
--- NOTE | 2023-11-04 09:28 | MRI ---
EXAM: MRI lumbar spine without and with IV contrast HISTORY: PSOAS ABCESS - COMPARISON: CT 10/22/2023 and 10/27/2023, MRI lumbar spine 09/17/2023 TECHNIQUE: Multiplanar multisequence MRI of the lumbar spine was obtained without and with IV contrast. 15 cc Mu ltiHance IV contrast. FINDINGS: The conus terminates at the L1 level. No spondylolisthesis. L1 compression fracture as slightly worse pham since prior study with 50% loss of height. Worsening L4 compression fracture is seen with 30% lo ss of height. Enhancing edema is present within the L3 and L4 vertebrae and intervening disc consistent with discit is and osteomyelitis. This infection extends into the paraspinous soft tissues anteriorly and automatic cigar wrapper tender iorly. There are small psoas abscesses that are improved since August and are likely similar to recent CT pelvis of 10/27/2023. There is epidural spread of infection at L3-4 but the epidural abscess appearance suggested on prior MRI is not seen. There is no abnormal contrast enhancement of the conus or filum terminale. There a re a few tiny poorly formed abscesses in the subcutaneous and paraspinous musculature in the posterio r back with the largest being in the region of the laminectomy defect at the L4 level measuring 1.7 x 1.9 cm. Osteomyelitis is suspected within the L1 vertebral body, also. There is discitis within the T12-L1 d isc and mild osteomyelitis in the T12 vertebral body. These changes have worsened at this level sinc e prior study, where no T12 involvement was suggested. There is mild spread of infection to the left of the T12-L1 disc in the paraspinous soft tissues. No epidural extension of infection is seen at t his level. There is a focus of increased T2 signal and enhancement in the superior endplate of L2 which is proba bert from Schmorl's node formation. This appearance is similar to prior study. T12 -- L1: No significant stenosis. L1 -- L2: Mild posterior element hypertrophy and central disc osteophyte complex cause mild thecal sa c effacement. There appears to be moderate bilateral neuroforaminal stenosis. L2 -- L3: Mild posterior element hypertrophy is seen with likely small posterior osteophytes. Modera te neuroforaminal narrowing is seen. Mild thecal sac effacement is seen. L3 -- L4: Prior laminectomy. Mild facet hypertrophy is seen. Spread of infection is likely present in the neural foramina involving the L3 nerve roots. Epidural spread of infection and posterior oste ophytes result in mild thecal sac effacement. There is mild left-sided and prominent right-sided lat eral recess stenosis. There could be compression of the right L4 nerve root. L4 -- L5: Prior laminectomy. Facet hypertrophy is seen with probable septic arthritis in the facet j oints, hliw-[id number]-right. Mild epidural spread of infection is present at this level causing n o significant thecal sac effacement. Likely mild lateral recess stenosis is seen. Spread of infecti on is likely present in the bilateral neural foramina involving the L4 nerve roots. L5 -- S1:Enhancing annular fissure is seen in the disc but no disc herniation is seen. There may be slight bulging of the disc to the right of midline. Slight right lateral recess narrowing is seen. Mild bilateral neuroforaminal narrowing is seen. IMPRESSION: Discitis and osteomyelitis is present at L4-5 with adjacent spread of infection into the soft tissues . Small psoas abscesses persist and there are small abscesses in the posterior paraspinous musculatu re and subcutaneous soft tissues posteriorly. Epidural spread of infection is seen at L3 and L4 with no evidence of thecal sac compression. Infect ion involves the L3-4 and L4-5 neural foramina. No epidural abscess is seen. Worsening discitis and osteomyelitis is present at T12-L1 with mild spread of infection into the left paraspinous soft tissues laterally. No epidural spread of infection is seen at this level. THIS IS AN ELECTRONICALLY VERIFIED FINAL REPORT 11/04/2023 9:24 AM - Electronically signed by Gordo Simons MD
[2023-11-04] MEDS: VANCOMYCIN IV *PREMIX 1.25 G/250 ML BAG 1.25 G/250 ML PIGGYBACK IV ONE (11:04)
[2023-11-05] MEDS ORDERED: TYLENOL 325 MG TAB PO PRN (05:51)
[2023-11-05] MEDS: VANCOMYCIN IV *PREMIX 1 G/200 ML BAG 1 G/200 ML PIGGYBACK IV SCH (09:48)
[2023-11-05] MEDS: TOPROL XL PO ONE (09:48)
[2023-11-05] MEDS: NS 500 ML IV 500 ML IV ONE (11:16)
[2023-11-05] MEDS: NAFCILLIN SODIUM ONE (11:16)
[2023-11-05] MEDS: NS 250 ML IV 250 ML IV ONE (11:16)
[2023-11-05] MEDS: PHARMACY CONSULT - VANCOMYCIN XX SCH (19:53)
[2023-11-06] MEDS: NAFCILLIN SODIUM IV SCH (01:31)
[2023-11-06] MEDS: NS IV SCH (01:31)
[2023-11-06 07:44] LABS: EOSINOPHILS # (AUTO) 0.6 x10^3/uL (0.0-0.2); HEMOGLOBIN 9.2 g/dL (13.5-18.0); LYMPHOCYTES # (AUTO) 2.3 X10^3/uL (1.3-2.9); MEAN CORPUSCULAR HEMOGLOBIN 28.7 pg (27.0-34.0); MONOCYTES # (AUTO) 0.5 x10^3/uL (0.3-0.8); MONOCYTES % (AUTO) 7.7 % (0.0-13.0); NEUTROPHILS # (AUTO) 3.2 x10^3/uL (2.2-4.8); RED BLOOD COUNT 3.22 X10^6/uL (4.7-6.0)
[2023-11-06 07:48] LABS: BASOPHILS # (AUTO) 0.1 X10^3/uL (0.0-0.1); BASOPHILS % (AUTO) 1.1 % (0.2-1.0); EOSINOPHILS % (AUTO) 8.3 % (0.9-2.9); HEMATOCRIT 27.1 % (42.0-54.0); LYMPHOCYTES % (AUTO) 34.9 % (21.0-51.0); MEAN CORPUSCULAR HGB CONC 34.1 g/dL (33.0-35.0); MEAN CORPUSCULAR VOLUME 84.1 fL (80.0-100.0); MEAN PLATELET VOLUME 6.1 fL (7.4-11.0); PLATELET COUNT 314 X10^3/uL (150.0-450.0); RED CELL DISTRIBUTION WIDTH 18.6 % (11.6-16.5); WHITE BLOOD COUNT 6.7 X10^3/uL (3.6-10.0)
[2023-11-06 07:57] LABS: ALANINE AMINOTRANSFERASE < 6 Units/L (12-78); ALBUMIN 1.9 g/dL (3.4-5.0); ALKALINE PHOSPHATASE 66 Units/L (46-116); ASPARTATE AMINO TRANSFERASE 9 Units/L (15-37); BLOOD UREA NITROGEN 12 mg/dL (7-18); CALCIUM 8.8 mg/dL (8.5-10.1); CARBON DIOXIDE 27.5 mmol/L (21-32); CHLORIDE 102 mmol/L (98-107); COR CA(FOR HYPOALB) 10.5 mg/dL (8.5-10.1); COR NA(FOR HYPERGLY) 138 mmol/L (136-145); CREATININE 1.75 mg/dL (0.70-1.30); GLUCOSE 113 mg/dL (65-99); MAGNESIUM 1.6 mg/dL (2.0-2.9); POTASSIUM 4.1 mmol/L (3.5-5.1); SODIUM 138 mmol/L (136-145); TOTAL PROTEIN 7.3 g/dL (6.4-8.2); eGFR NON BLACK RACES 42 (>60)
[2023-11-06 08:21] LABS: BASOPHILS % (MANUAL) 1 % (0-1)
[2023-11-06 08:22] LABS: ANISOCYTOSIS SLIGHT; PLATELET MORPHOLOGY COMMENT NORMAL (NORMAL)
[2023-11-06] MEDS: TOPROL XL PO ONE (08:57)
--- NOTE | 2023-11-06 12:16 | PCM.PROG ---
Progress Note Progress Note for Day of Date of Exam: 11/06/23 Subjective Subjective: Patient is a 63-year-old male that is being treated for osteomyelitis and two spinal bodies and some discitis as well as infection in the surrounding tissues seen on MRI. This morning he is laying in bed. No acute events overnight. Labs/imaging: WBC 6.7, hemoglobin 9.2, platelets 314, sodium 138, potassium 4.1, creatinine 1.75, glucose 113. He is currently receiving Nafcillin, Bactrim, and Vancomycin. Home medications have been resumed. Otherwise, continue with current treatment plan. Closely monitor and follow up labs/imaging. Past Medical Family Social History Allergies: Allergies No Known Allergies Allergy (Verified 08/31/23 13:05) Review of Systems ROS changes noted: see HPI Vital Signs and I&O's Vital Signs: Vital Signs Temperature 98.5 F Pulse Rate [Left Radial] 84 Respiratory Rate 19 Respiratory Rate 18 Blood Pressure [Left Arm] 168/99 O2 Sat by Pulse Oximetry 94 Intake and Output: Intake & Output 11/03/23 11/04/23 11/05/23 11/06/23 23:59 23:59 23:59 23:59 Intake Total 4152 / 4152 4492 / 4492 3262 / 3262 2754 / 2754 Output Total 4975 / 4975 4500 / 4500 3200 / 3200 600 / 600 Balance -823 / -823 -8 / -8 62 / 62 2154 / 2154 Physical Exam Oriented: Normal Respiratory: Normal Cardiovascular: Normal : Normal Auscultation: Bowel Sounds: Normal Palpation: Normal Tenderness: Normal Skin: Normal Musculoskeletal: Back:Lumbar (tenderness) Speech Pattern: Clear and Appropriate Laboratory and Diagnostics 11/06/23 07:35 11/06/23 07:35 Labs: Laboratory WBC 6.7 X10^3/uL (3.6-10.0) 11/06/23 07:35 RBC 3.22 X10^6/uL (4.7-6.0) L 11/06/23 07:35 Hgb 9.2 g/dL (13.5-18.0) L 11/06/23 07:35 Hct 27.1 % (42.0-54.0) L 11/06/23 07:35 MCV 84.1 fL (80.0-100.0) 11/06/23 07:35 MCH 28.7 pg (27.0-34.0) 11/06/23 07:35 MCHC 34.1 g/dL (33.0-35.0) 11/06/23 07:35 RDW 18.6 % (11.6-16.5) H 11/06/23 07:35 Plt Count 314 X10^3/uL (150.0-450.0) 11/06/23 07:35 Plt Count Comment Adequate (ADEQUATE) 11/06/23 07:35 MPV 6.1 fL (7.4-11.0) L 11/06/23 07:35 Neut % (Auto) 48.0 % (42.0-75.0) 11/06/23 07:35 Lymph % (Auto) 34.9 % (21.0-51.0) 11/06/23 07:35 [place] % (Auto) 7.7 % (0.0-13.0) 11/06/23 07:35 Eos % (Auto) 8.3 % (0.9-2.9) H 11/06/23 07:35 Baso % (Auto) 1.1 % (0.2-1.0) H 11/06/23 07:35 Neut # (Auto) 3.2 x10^3/uL (2.2-4.8) 11/06/23 07:35 Lymph # (Auto) 2.3 X10^3/uL (1.3-2.9) 11/06/23 07:35 [place] # (Auto) 0.5 x10^3/uL (0.3-0.8) 11/06/23 07:35 Eos # (Auto) 0.6 x10^3/uL (0.0-0.2) H 11/06/23 07:35 Baso # (Auto) 0.1 X10^3/uL (0.0-0.1) 11/06/23 07:35 Absolute Nucleated RBC 0.0 /100WBC 11/06/23 07:35 Total Counted 100 11/06/23 07:35 Neutrophils % (Manual) 47 % (39-76) 11/06/23 07:35 Lymphocytes % (Manual) 40 % (13-43) 11/06/23 07:35 Monocytes % (Manual) 5 % (4-9) 11/06/23 07:35 Eosinophils % (Manual) 7 % (0-6) H 11/06/23 07:35 Basophils % (Manual) 1 % (0-1) 11/06/23 07:35 Plt Morphology Comment Normal (NORMAL) 11/06/23 07:35 RBC Morphology Abnormal (NORMAL) 11/06/23 07:35 Anisocytosis Slight A 11/06/23 07:35 Sodium 138 mmol/L (136-145) 11/06/23 07:35 Corrected Sodium 138 mmol/L (136-145) 11/06/23 07:35 Potassium 4.1 mmol/L (3.5-5.1) 11/06/23 07:35 Chloride 102 mmol/L (98-107) 11/06/23 07:35 Carbon Dioxide 27.5 mmol/L (21-32) 11/06/23 07:35 BUN 12 mg/dL (7-18) 11/06/23 07:35 Creatinine 1.75 mg/dL (0.70-1.30) H 11/06/23 07:35 Est GFR (MDRD) Af Amer 51 (>60) L 11/06/23 07:35 Est GFR (MDRD) Non-Af 42 (>60) L 11/06/23 07:35 Glucose 113 mg/dL (65-99) H 11/06/23 07:35 Calcium 8.8 mg/dL (8.5-10.1) 11/06/23 07:35 Corrected Calcium 10.5 mg/dL (8.5-10.1) H 11/06/23 07:35 Magnesium 1.6 mg/dL (2.0-2.9) L 11/06/23 07:35 Total Bilirubin 0.80 mg/dL (0.2-1.0) 11/06/23 07:35 AST 9 Units/L (15-37) L 11/06/23 07:35 ALT < 6 Units/L (12-78) L 11/06/23 07:35 Alkaline Phosphatase 66 Units/L (46-116) 11/06/23 07:35 Total Protein 7.3 g/dL (6.4-8.2) 11/06/23 07:35 Albumin 1.9 g/dL (3.4-5.0) L 11/06/23 07:35 Globulin 5.4 g/dL (2.5-4.5) H 11/06/23 07:35 Albumin/Globulin Ratio 0.4 Ratio (1.1-2.1) L 11/06/23 07:35 Lipase 48 Units/L (16-77) 10/27/23 11:50 Specimen Type Clean catch urine 10/27/23 11:35 Urine Color Yellow (YELLOW) 10/27/23 11:35 Urine Appearance Cloudy (CLEAR) 10/27/23 11:35 Urine pH 7.0 (5.0 - 8.0) 10/27/23 11:35 Ur Specific [place] 1.010 (1.000-1.030) 10/27/23 11:35 Urine Protein 3+ (NEGATIVE) 10/27/23 11:35 Urine Glucose (UA) Negative (NEGATIVE) 10/27/23 11:35 Urine Ketones Negative (NEGATIVE) 10/27/23 11:35 Urine Blood 5+ (NEGATIVE) 10/27/23 11:35 Urine Nitrite Negative (NEGATIVE) 10/27/23 11:35 Urine Bilirubin Negative (NEGATIVE) 10/27/23 11:35 Urine Urobilinogen Normal (NORMAL) 10/27/23 11:35 Ur Leukocyte Esterase Negative (NEGATIVE) 10/27/23 11:35 Urine RBC Tntc /HPF (0-3) A 10/27/23 11:35 Urine WBC 0-2 /HPF (0-5) 10/27/23 11:35 Ur Squamous Epith Cells Rare /HPF (NEGATIVE) 10/27/23 11:35 Urine Bacteria Negative /HPF (NEGATIVE) 10/27/23 11:35 Ur Culture Indicated? No/not indicated 10/27/23 11:35 Stl C. diff Tox B Gene Negative (NEGATIVE) 10/27/23 18:14 Stl C. diff [id number] Presumptive negative (NEGATIVE) 10/27/23 18:14 Plan (1) Osteomyelitis of vertebra of lumbar region: Status: Acute Plan: Continue IV antibiotics
[2023-11-06] MEDS ORDERED: CONSULT PHARMACY - POTASSIUM & MAGNESIUM XX SCH (16:00)
[2023-11-06] MEDS: MAG-OX TAB PO SCH (16:13)
[2023-11-06] MEDS: MORPHINE SULFATE INJ 2 MG INJ IVP PRN (21:46)
[2023-11-07 05:30] LABS: BASOPHILS # (AUTO) 0.1 X10^3/uL (0.0-0.1); BASOPHILS % (AUTO) 1.1 % (0.2-1.0); EOSINOPHILS # (AUTO) 0.5 x10^3/uL (0.0-0.2); EOSINOPHILS % (AUTO) 6.8 % (0.9-2.9); HEMATOCRIT 28.4 % (42.0-54.0); HEMOGLOBIN 9.8 g/dL (13.5-18.0); LYMPHOCYTES # (AUTO) 2.2 X10^3/uL (1.3-2.9); LYMPHOCYTES % (AUTO) 31.6 % (21.0-51.0); MEAN CORPUSCULAR HEMOGLOBIN 29.1 pg (27.0-34.0); MEAN CORPUSCULAR HGB CONC 34.6 g/dL (33.0-35.0); MEAN CORPUSCULAR VOLUME 84.1 fL (80.0-100.0); MEAN PLATELET VOLUME 6.3 fL (7.4-11.0); MONOCYTES # (AUTO) 0.5 x10^3/uL (0.3-0.8); NEUTROPHILS # (AUTO) 3.7 x10^3/uL (2.2-4.8); NEUTROPHILS % (AUTO) 53.5 % (42.0-75.0); PLATELET COUNT 295 X10^3/uL (150.0-450.0); RED BLOOD COUNT 3.38 X10^6/uL (4.7-6.0); RED CELL DISTRIBUTION WIDTH 19.1 % (11.6-16.5)
[2023-11-07 05:40] LABS: ALANINE AMINOTRANSFERASE < 6 Units/L (12-78); ALKALINE PHOSPHATASE 64 Units/L (46-116); ASPARTATE AMINO TRANSFERASE 10 Units/L (15-37); BLOOD UREA NITROGEN 14 mg/dL (7-18); CARBON DIOXIDE 28.7 mmol/L (21-32); CHLORIDE 102 mmol/L (98-107); COR CA(FOR HYPOALB) 10.6 mg/dL (8.5-10.1); CREATININE 1.82 mg/dL (0.70-1.30); GLUCOSE 104 mg/dL (65-99); MAGNESIUM 1.8 mg/dL (2.0-2.9); POTASSIUM 4.4 mmol/L (3.5-5.1); SODIUM 139 mmol/L (136-145); TOTAL PROTEIN 7.3 g/dL (6.4-8.2); eGFR NON BLACK RACES 40 (>60)
[2023-11-07] MEDS ORDERED: CONSULT PHARMACY - POTASSIUM & MAGNESIUM XX SCH (06:00)
[2023-11-07 06:06] LABS: METAMYELOCYTES % 2
[2023-11-07 06:07] LABS: ANISOCYTOSIS SLIGHT; PLATELET MORPHOLOGY COMMENT NORMAL (NORMAL)
[2023-11-07 06:35] LABS: CREATININE 1.83 mg/dL (0.70-1.30); VANCOMYCIN,TROUGH 16.6 ug/mL (15-20)
[2023-11-07] MEDS ORDERED: TOPROL XL PO ONE (08:24)
[2023-11-07] MEDS: MAG-OX TAB PO SCH (08:37)
[2023-11-07] MEDS: PHARMACY COMMENT IV ONE (08:38)
--- NOTE | 2023-11-07 11:58 | PCM.PROG ---
Progress Note Progress Note for Day of Date of Exam: 11/07/23 Subjective Subjective: Patient is a 63-year-old male that is being treated for osteomyelitis and two spinal bodies and some discitis as well as infection in the surrounding tissues seen on MRI. This patient is sitting up in bed on exam. No acute events overnight. He has been improving. Witnessed him ambulate from the bathroom to the bed with assistance. Labs/imaging: WBC 7, hemoglobin 9.8, platelets 295, sodium 139, potassium 4.4, creatinine 1.82, glucose 104. He is currently receiving Nafcillin, Bactrim, and Vancomycin. Home medications have been resumed. Otherwise, continue with current treatment plan. Closely monitor and follow up labs/imaging. Past Medical Family Social History Allergies: Allergies No Known Allergies Allergy (Verified 08/31/23 13:05) Review of Systems ROS changes noted: see HPI Vital Signs and I&O's Vital Signs: Vital Signs Temperature 98.0 F Temperature 98.1 F Pulse Rate [Left Radial] 81 Pulse Rate [Left Radial] 79 Respiratory Rate 20 Respiratory Rate 20 Respiratory Rate 20 Respiratory Rate 22 Respiratory Rate 18 Respiratory Rate 19 Respiratory Rate 22 Respiratory Rate 22 Respiratory Rate 19 Respiratory Rate 21 Blood Pressure [Left Arm] 173/80 Blood Pressure [Left Arm] 172/80 O2 Sat by Pulse Oximetry 96 O2 Sat by Pulse Oximetry 97 Intake and Output: Intake & Output 11/04/23 11/05/23 11/06/23 11/07/23 23:59 23:59 23:59 23:59 Intake Total 4492 / 4492 3262 / 3262 6024 / 6024 1347 / 1347 Output Total 4500 / 4500 3200 / 3200 3350 / 3350 2240 / 2240 Balance -8 / -8 62 / 62 2674 / 2674 -893 / -893 Physical Exam Oriented: Normal Respiratory: Normal Cardiovascular: Normal : Normal Auscultation: Bowel Sounds: Normal Tenderness: Normal Skin: Normal Musculoskeletal: Back:Lumbar (tenderness) Speech Pattern: Clear and Appropriate Laboratory and Diagnostics 11/07/23 05:02 11/07/23 06:20 Labs: Laboratory WBC 7.0 X10^3/uL (3.6-10.0) 11/07/23 05:02 RBC 3.38 X10^6/uL (4.7-6.0) L 11/07/23 05:02 Hgb 9.8 g/dL (13.5-18.0) L 11/07/23 05:02 Hct 28.4 % (42.0-54.0) L 11/07/23 05:02 MCV 84.1 fL (80.0-100.0) 11/07/23 05:02 MCH 29.1 pg (27.0-34.0) 11/07/23 05:02 MCHC 34.6 g/dL (33.0-35.0) 11/07/23 05:02 RDW 19.1 % (11.6-16.5) H 11/07/23 05:02 Plt Count 295 X10^3/uL (150.0-450.0) 11/07/23 05:02 Plt Count Comment Adequate (ADEQUATE) 11/07/23 05:02 MPV 6.3 fL (7.4-11.0) L 11/07/23 05:02 Neut % (Auto) 53.5 % (42.0-75.0) 11/07/23 05:02 Lymph % (Auto) 31.6 % (21.0-51.0) 11/07/23 05:02 [place] % (Auto) 7.0 % (0.0-13.0) 11/07/23 05:02 Eos % (Auto) 6.8 % (0.9-2.9) H 11/07/23 05:02 Baso % (Auto) 1.1 % (0.2-1.0) H 11/07/23 05:02 Neut # (Auto) 3.7 x10^3/uL (2.2-4.8) 11/07/23 05:02 Lymph # (Auto) 2.2 X10^3/uL (1.3-2.9) 11/07/23 05:02 [place] # (Auto) 0.5 x10^3/uL (0.3-0.8) 11/07/23 05:02 Eos # (Auto) 0.5 x10^3/uL (0.0-0.2) H 11/07/23 05:02 Baso # (Auto) 0.1 X10^3/uL (0.0-0.1) 11/07/23 05:02 Absolute Nucleated RBC 0.1 /100WBC 11/07/23 05:02 Total Counted 100 11/07/23 05:02 Neutrophils % (Manual) 50 % (39-76) 11/07/23 05:02 Lymphocytes % (Manual) 37 % (13-43) 11/07/23 05:02 Monocytes % (Manual) 4 % (4-9) 11/07/23 05:02 Eosinophils % (Manual) 7 % (0-6) H 11/07/23 05:02 Basophils % (Manual) 1 % (0-1) 11/06/23 07:35 Metamyelocytes % 2 11/07/23 05:02 Plt Morphology Comment Normal (NORMAL) 11/07/23 05:02 RBC Morphology Abnormal (NORMAL) 11/07/23 05:02 Anisocytosis Slight A 11/07/23 05:02 Sodium 139 mmol/L (136-145) 11/07/23 05:00 Corrected Sodium TNP 11/07/23 05:00 Potassium 4.4 mmol/L (3.5-5.1) 11/07/23 05:00 Chloride 102 mmol/L (98-107) 11/07/23 05:00 Carbon Dioxide 28.7 mmol/L (21-32) 11/07/23 05:00 BUN 14 mg/dL (7-18) 11/07/23 05:00 Creatinine 1.83 mg/dL (0.70-1.30) H 11/07/23 06:20 Est GFR (MDRD) Af Amer 49 (>60) L 11/07/23 05:00 Est GFR (MDRD) Non-Af 40 (>60) L 11/07/23 05:00 Glucose 104 mg/dL (65-99) H 11/07/23 05:00 Calcium 9.0 mg/dL (8.5-10.1) 11/07/23 05:00 Corrected Calcium 10.6 mg/dL (8.5-10.1) H 11/07/23 05:00 Magnesium 1.8 mg/dL (2.0-2.9) L 11/07/23 05:00 Total Bilirubin 0.80 mg/dL (0.2-1.0) 11/07/23 05:00 AST 10 Units/L (15-37) L 11/07/23 05:00 ALT < 6 Units/L (12-78) L 11/07/23 05:00 Alkaline Phosphatase 64 Units/L (46-116) 11/07/23 05:00 Total Protein 7.3 g/dL (6.4-8.2) 11/07/23 05:00 Albumin 2.0 g/dL (3.4-5.0) L 11/07/23 05:00 Globulin 5.3 g/dL (2.5-4.5) H 11/07/23 05:00 Albumin/Globulin Ratio 0.4 Ratio (1.1-2.1) L 11/07/23 05:00 Lipase 48 Units/L (16-77) 10/27/23 11:50 Specimen Type Clean catch urine 10/27/23 11:35 Urine Color Yellow (YELLOW) 10/27/23 11:35 Urine Appearance Cloudy (CLEAR) 10/27/23 11:35 Urine pH 7.0 (5.0 - 8.0) 10/27/23 11:35 Ur Specific [place] 1.010 (1.000-1.030) 10/27/23 11:35 Urine Protein 3+ (NEGATIVE) 10/27/23 11:35 Urine Glucose (UA) Negative (NEGATIVE) 10/27/23 11:35 Urine Ketones Negative (NEGATIVE) 10/27/23 11:35 Urine Blood 5+ (NEGATIVE) 10/27/23 11:35 Urine Nitrite Negative (NEGATIVE) 10/27/23 11:35 Urine Bilirubin Negative (NEGATIVE) 10/27/23 11:35 Urine Urobilinogen Normal (NORMAL) 10/27/23 11:35 Ur Leukocyte Esterase Negative (NEGATIVE) 10/27/23 11:35 Urine RBC Tntc /HPF (0-3) A 10/27/23 11:35 Urine WBC 0-2 /HPF (0-5) 10/27/23 11:35 Ur Squamous Epith Cells Rare /HPF (NEGATIVE) 10/27/23 11:35 Urine Bacteria Negative /HPF (NEGATIVE) 10/27/23 11:35 Ur Culture Indicated? No/not indicated 10/27/23 11:35 Stl C. diff Tox B Gene Negative (NEGATIVE) 11/06/23 14:24 Stl C. diff [id number] Presumptive negative (NEGATIVE) 11/06/23 14:24 Vancomycin Trough 16.6 ug/mL (15-20) 11/07/23 06:20 Plan (1) Osteomyelitis of vertebra of lumbar region: Status: Acute Plan: Continue IV antibiotics
[2023-11-08 06:19] LABS: BASOPHILS % (AUTO) 0.6 % (0.2-1.0); EOSINOPHILS # (AUTO) 0.4 x10^3/uL (0.0-0.2); EOSINOPHILS % (AUTO) 5.2 % (0.9-2.9); HEMATOCRIT 31.9 % (42.0-54.0); LYMPHOCYTES # (AUTO) 2.5 X10^3/uL (1.3-2.9); LYMPHOCYTES % (AUTO) 33.2 % (21.0-51.0); MEAN CORPUSCULAR HEMOGLOBIN 29.2 pg (27.0-34.0); MEAN CORPUSCULAR HGB CONC 34.5 g/dL (33.0-35.0); MEAN CORPUSCULAR VOLUME 84.7 fL (80.0-100.0); MEAN PLATELET VOLUME 6.1 fL (7.4-11.0); MONOCYTES # (AUTO) 0.4 x10^3/uL (0.3-0.8); MONOCYTES % (AUTO) 5.6 % (0.0-13.0); NEUTROPHILS # (AUTO) 4.2 x10^3/uL (2.2-4.8); NEUTROPHILS % (AUTO) 55.4 % (42.0-75.0); PLATELET COUNT 332 X10^3/uL (150.0-450.0); RED BLOOD COUNT 3.76 X10^6/uL (4.7-6.0); RED CELL DISTRIBUTION WIDTH 19.4 % (11.6-16.5); WHITE BLOOD COUNT 7.5 X10^3/uL (3.6-10.0)
[2023-11-08 06:35] LABS: ALANINE AMINOTRANSFERASE 7 Units/L (12-78); ALBUMIN 2.4 g/dL (3.4-5.0); ALKALINE PHOSPHATASE 75 Units/L (46-116); ASPARTATE AMINO TRANSFERASE 17 Units/L (15-37); BLOOD UREA NITROGEN 18 mg/dL (7-18); CALCIUM 9.8 mg/dL (8.5-10.1); CARBON DIOXIDE 27.5 mmol/L (21-32); CHLORIDE 100 mmol/L (98-107); COR CA(FOR HYPOALB) 11.1 mg/dL (8.5-10.1); CREATININE 1.88 mg/dL (0.70-1.30); GLUCOSE 91 mg/dL (65-99); MAGNESIUM 2.2 mg/dL (2.0-2.9); POTASSIUM 5.1 mmol/L (3.5-5.1); SODIUM 136 mmol/L (136-145); TOTAL PROTEIN 8.5 g/dL (6.4-8.2); eGFR NON BLACK RACES 39 (>60)
[2023-11-08 06:41] LABS: ANISOCYTOSIS SLIGHT; PLATELET MORPHOLOGY COMMENT NORMAL (NORMAL)
[2023-11-08] MEDS ORDERED: TOPROL XL PO ONE (08:56)
--- NOTE | 2023-11-08 10:09 | PCM.PROG ---
Progress Note Progress Note for Day of Date of Exam: 11/08/23 Subjective Subjective: Patient seen at bedside, no acute events overnight. He reports feeling slightly better, he has been ambulating with a walker in the room. He is able to go to the bathroom. He is currently admitted for osteomyelitis/discitis as well as infection in the surrounding tissues seen on MRI. He is slowly improving in terms of ambulation. Patient is not a candidate to get home health at home and declined prison placement. Patient would like to go home when he is able to. He does not have any help at home. He states there was a nurse coming to his house a few times a week but not sure which company. He is currently on IV Nafcillin and Vancomycin. He has been on Nafcillin for a few weeks since he was discharge from [place], stop date on that was 11/05/23. His WBC is normal and other labs have been stable. He continues to work with PT as tolerated. He states he is not able to come to the hospital for IV antibiotics and would prefer to take oral abx for the infection. He has been on IV a ntibiotics for over 2 weeks. Labs/imaging reviewed: -WBC 7.5 Hgb 11.0 K:5.1 BUN/Cr: 18/1.88 Plan: will review records from [place] regarding start date on nafcillin to see how long he has been getting that antibiotic. Continue Nafcillin and Vancomycin for now. DC bactrim. Continue PT/OT. Continue pain control. CM working on discharge planning, patient needs a higher bedside commode to help at home. He already has a walker. Will check which agency nurses were coming to the house. Patient will not be able to get IV antibiotics after discharge due to no transportation and financial reasons. Continue current treatment. Replace electrolytes as per protocol. Monitor AM labs/imaging. Past Medical Family Social History Allergies: Allergies No Known Allergies Allergy (Verified 08/31/23 13:05) Vital Signs and I&O's Vital Signs: Vital Signs Temperature 98.4 F Temperature 98.1 F Pulse Rate [Left Radial] 87 Pulse Rate [Left Radial] 77 Respiratory Rate 20 Respiratory Rate 20 Respiratory Rate 19 Respiratory Rate 19 Respiratory Rate 21 Respiratory Rate 21 Blood Pressure [Left Arm] 164/96 Blood Pressure [Left Arm] 170/83 O2 Sat by Pulse Oximetry 97 O2 Sat by Pulse Oximetry 95 Intake and Output: Intake & Output 11/05/23 11/06/23 11/07/23 11/08/23 23:59 23:59 23:59 23:59 Intake Total 3262 / 3262 6024 / 6024 6597 / 6597 720 / 720 Output Total 3200 / 3200 3350 / 3350 5225 / 5225 2545 / 2545 Balance 62 / 62 2674 / 2674 1372 / 1372 -1825 / -1825 Physical Exam Oriented: Normal Eyes: Normal Throat: Normal Respiratory: Normal Cardiovascular: Normal Auscultation: Bowel Sounds: Normal Palpation: Normal Tenderness: Normal Skin: Normal Musculoskeletal: Back:Lumbar (tenderness) Psychiatric: Normal Mood Description: Calm Affect: Normal Speech Pattern: Clear and Appropriate Laboratory and Diagnostics 11/08/23 06:04 11/08/23 06:04 Labs: Laboratory WBC 7.5 X10^3/uL (3.6-10.0) 11/08/23 06:04 RBC 3.76 X10^6/uL (4.7-6.0) L 11/08/23 06:04 Hgb 11.0 g/dL (13.5-18.0) L 11/08/23 06:04 Hct 31.9 % (42.0-54.0) L 11/08/23 06:04 MCV 84.7 fL (80.0-100.0) 11/08/23 06:04 MCH 29.2 pg (27.0-34.0) 11/08/23 06:04 MCHC 34.5 g/dL (33.0-35.0) 11/08/23 06:04 RDW 19.4 % (11.6-16.5) H 11/08/23 06:04 Plt Count 332 X10^3/uL (150.0-450.0) 11/08/23 06:04 Plt Count Comment Adequate (ADEQUATE) 11/08/23 06:04 MPV 6.1 fL (7.4-11.0) L 11/08/23 06:04 Neut % (Auto) 55.4 % (42.0-75.0) 11/08/23 06:04 Lymph % (Auto) 33.2 % (21.0-51.0) 11/08/23 06:04 [place] % (Auto) 5.6 % (0.0-13.0) 11/08/23 06:04 Eos % (Auto) 5.2 % (0.9-2.9) H 11/08/23 06:04 Baso % (Auto) 0.6 % (0.2-1.0) 11/08/23 06:04 Neut # (Auto) 4.2 x10^3/uL (2.2-4.8) 11/08/23 06:04 Lymph # (Auto) 2.5 X10^3/uL (1.3-2.9) 11/08/23 06:04 [place] # (Auto) 0.4 x10^3/uL (0.3-0.8) 11/08/23 06:04 Eos # (Auto) 0.4 x10^3/uL (0.0-0.2) H 11/08/23 06:04 Baso # (Auto) 0.0 X10^3/uL (0.0-0.1) 11/08/23 06:04 Absolute Nucleated RBC 0.0 /100WBC 11/08/23 06:04 Total Counted 100 11/08/23 06:04 Neutrophils % (Manual) 42 % (39-76) 11/08/23 06:04 Lymphocytes % (Manual) 46 % (13-43) H 11/08/23 06:04 Monocytes % (Manual) 7 % (4-9) 11/08/23 06:04 Eosinophils % (Manual) 5 % (0-6) 11/08/23 06:04 Basophils % (Manual) 1 % (0-1) 11/06/23 07:35 Metamyelocytes % 2 11/07/23 05:02 Plt Morphology Comment Normal (NORMAL) 11/08/23 06:04 RBC Morphology Abnormal (NORMAL) 11/08/23 06:04 Anisocytosis Slight A 11/08/23 06:04 Sodium 136 mmol/L (136-145) 11/08/23 06:04 Corrected Sodium TNP 11/08/23 06:04 Potassium 5.1 mmol/L (3.5-5.1) 11/08/23 06:04 Chloride 100 mmol/L (98-107) 11/08/23 06:04 Carbon Dioxide 27.5 mmol/L (21-32) 11/08/23 06:04 BUN 18 mg/dL (7-18) 11/08/23 06:04 Creatinine 1.88 mg/dL (0.70-1.30) H 11/08/23 06:04 Est GFR (MDRD) Af Amer 47 (>60) L 11/08/23 06:04 Est GFR (MDRD) Non-Af 39 (>60) L 11/08/23 06:04 Glucose 91 mg/dL (65-99) 11/08/23 06:04 Calcium 9.8 mg/dL (8.5-10.1) 11/08/23 06:04 Corrected Calcium 11.1 mg/dL (8.5-10.1) H 11/08/23 06:04 Magnesium 2.2 mg/dL (2.0-2.9) 11/08/23 06:04 Total Bilirubin 1.00 mg/dL (0.2-1.0) 11/08/23 06:04 AST 17 Units/L (15-37) 11/08/23 06:04 ALT 7 Units/L (12-78) L 11/08/23 06:04 Alkaline Phosphatase 75 Units/L (46-116) 11/08/23 06:04 Total Protein 8.5 g/dL (6.4-8.2) H 11/08/23 06:04 Albumin 2.4 g/dL (3.4-5.0) L 11/08/23 06:04 Globulin 6.1 g/dL (2.5-4.5) H 11/08/23 06:04 Albumin/Globulin Ratio 0.4 Ratio (1.1-2.1) L 11/08/23 06:04 Lipase 48 Units/L (16-77) 10/27/23 11:50 Specimen Type Clean catch urine 10/27/23 11:35 Urine Color Yellow (YELLOW) 10/27/23 11:35 Urine Appearance Cloudy (CLEAR) 10/27/23 11:35 Urine pH 7.0 (5.0 - 8.0) 10/27/23 11:35 Ur Specific [place] 1.010 (1.000-1.030) 10/27/23 11:35 Urine Protein 3+ (NEGATIVE) 10/27/23 11:35 Urine Glucose (UA) Negative (NEGATIVE) 10/27/23 11:35 Urine Ketones Negative (NEGATIVE) 10/27/23 11:35 Urine Blood 5+ (NEGATIVE) 10/27/23 11:35 Urine Nitrite Negative (NEGATIVE) 10/27/23 11:35 Urine Bilirubin Negative (NEGATIVE) 10/27/23 11:35 Urine Urobilinogen Normal (NORMAL) 10/27/23 11:35 Ur Leukocyte Esterase Negative (NEGATIVE) 10/27/23 11:35 Urine RBC Tntc /HPF (0-3) A 10/27/23 11:35 Urine WBC 0-2 /HPF (0-5) 10/27/23 11:35 Ur Squamous Epith Cells Rare /HPF (NEGATIVE) 10/27/23 11:35 Urine Bacteria Negative /HPF (NEGATIVE) 10/27/23 11:35 Ur Culture Indicated? No/not indicated 10/27/23 11:35 Stl C. diff Tox B Gene Negative (NEGATIVE) 11/06/23 14:24 Stl C. diff [id number] Presumptive negative (NEGATIVE) 11/06/23 14:24 Vancomycin Trough 16.6 ug/mL (15-20) 11/07/23 06:20 Plan (1) Osteomyelitis of vertebra of lumbar region: Status: Acute (2) Generalized weakness: Status: Acute (3) Failure to thrive: Status: Acute (4) Hypoalbuminemia: Status: Acute (5) Discitis: Status: Acute (6) Spinal abscess: Status: Acute
[2023-11-09 06:20] LABS: BASOPHILS # (AUTO) 0.1 X10^3/uL (0.0-0.1); BASOPHILS % (AUTO) 1.1 % (0.2-1.0); EOSINOPHILS # (AUTO) 0.4 x10^3/uL (0.0-0.2); EOSINOPHILS % (AUTO) 4.6 % (0.9-2.9); HEMATOCRIT 32.8 % (42.0-54.0); HEMOGLOBIN 11.1 g/dL (13.5-18.0); LYMPHOCYTES # (AUTO) 2.7 X10^3/uL (1.3-2.9); LYMPHOCYTES % (AUTO) 31.9 % (21.0-51.0); MEAN CORPUSCULAR HEMOGLOBIN 28.7 pg (27.0-34.0); MEAN CORPUSCULAR HGB CONC 33.8 g/dL (33.0-35.0); MEAN CORPUSCULAR VOLUME 84.9 fL (80.0-100.0); MEAN PLATELET VOLUME 6.3 fL (7.4-11.0); MONOCYTES # (AUTO) 0.5 x10^3/uL (0.3-0.8); MONOCYTES % (AUTO) 5.5 % (0.0-13.0); NEUTROPHILS # (AUTO) 4.8 x10^3/uL (2.2-4.8); NEUTROPHILS % (AUTO) 56.9 % (42.0-75.0); PLATELET COUNT 351 X10^3/uL (150.0-450.0); RED BLOOD COUNT 3.86 X10^6/uL (4.7-6.0); RED CELL DISTRIBUTION WIDTH 19.3 % (11.6-16.5)
[2023-11-09 06:33] LABS: ALANINE AMINOTRANSFERASE 7 Units/L (12-78); ALBUMIN 2.5 g/dL (3.4-5.0); ALKALINE PHOSPHATASE 77 Units/L (46-116); ASPARTATE AMINO TRANSFERASE 17 Units/L (15-37); BLOOD UREA NITROGEN 22 mg/dL (7-18); CALCIUM 10.2 mg/dL (8.5-10.1); CARBON DIOXIDE 26.1 mmol/L (21-32); CHLORIDE 101 mmol/L (98-107); COR CA(FOR HYPOALB) 11.4 mg/dL (8.5-10.1); CREATININE 1.82 mg/dL (0.70-1.30); GLUCOSE 104 mg/dL (65-99); POTASSIUM 5.4 mmol/L (3.5-5.1); SODIUM 136 mmol/L (136-145); eGFR NON BLACK RACES 40 (>60)
[2023-11-09 06:45] LABS: ANISOCYTOSIS SLIGHT; PLATELET MORPHOLOGY COMMENT NORMAL (NORMAL); WHITE BLOOD COUNT 8.8 X10^3/uL (3.6-10.0)
[2023-11-09] MEDS ORDERED: TOPROL XL PO ONE (08:29)
[2023-11-09 10:18] LABS: CREATININE 1.85 mg/dL (0.70-1.30)
[2023-11-09] MEDS: PHARMACY COMMENT IV NR (10:28)
[2023-11-09 10:30] LABS: VANCOMYCIN,TROUGH 22.2 ug/mL (15-20)
[2023-11-09 13:11] VITALS: BP 144/80; PULSE 104; RESP 18; TEMP 97.9; O2SAT 92
== END 2023-11-09 13:20 | disposition home or self-care (01) | DRG 372 ==
LOC: SUPCPDRO → ER 11:03 → ICU 11:03 → U 14:24 → OBSVTOIN 14:24 → ICU 15:00 → INTOOBSV 10-28 08:00 → MED/SURG 10-30 14:00
PROVIDERS: ADMIT Obstetrics & Gynecology Obstetrics; ATTEND Obstetrics & Gynecology Obstetrics
DX: K68.12 Psoas muscle abscess; I10 Essential (primary) hypertension; M54.59 Other low back pain; R26.89 Other abnormalities of gait and mobility; R62.7 Adult failure to thrive; R19.7 Diarrhea, unspecified; Z91.81 History of falling; E83.42 Hypomagnesemia; R53.1 Weakness; Z65.8 Other specified problems related to psychosocial circumstances; M46.40 Discitis, unspecified, site unspecified; E88.09 Other disorders of plasma-protein metabolism, not elsewhere classified; M46.26 Osteomyelitis of vertebra, lumbar region; E87.6 Hypokalemia